=== PATIENT | female | born 1955 | race Caucasian/White ===

== ENCOUNTER 2017-09-14 05:31 | Outpatient (CLI) | payer BC ==
[~2017-09-14] VITALS: Ht 160 cm; Wt 97.1 kg
[2017-09-14] MEDS ORDERED: CETI10TA17 PO (10:31)
[2017-09-14] MEDS ORDERED: MELO15TA39 PO (10:31)
[2017-09-14] MEDS ORDERED: METF1000 PO (10:31)
[2017-09-14] MEDS ORDERED: SITA100T12 PO (10:31)
[2017-09-14] MEDS ORDERED: ACET-93 PO (10:31)
[2017-09-14] MEDS ORDERED: EZET10TA5 PO (10:31)
== END 2017-09-14 10:53 ==
LOC: PREOP 05:31
PROVIDERS: ATTEND Surgery
DX: Z01.818 Encounter for other preprocedural examination (principal); C50.919 Malignant neoplasm of unspecified site of unspecified female breast

== ENCOUNTER 2017-09-25 18:16 | Inpatient (IN) | payer BC ==
[~2017-09-25] VITALS: Ht 162.6 cm; Wt 88.5 kg
[~2017-09-25 18:16] MED LIST: ACET-93 PO; CETI10TA17 PO; EZET10TA5 PO; MELO15TA39 PO; METF1000 PO; SITA100T12 PO
[2017-09-25] MEDS ORDERED: IBUPROFEN TABLET 200 MG TAB PO PRN (18:30)
[2017-09-25] MEDS: VANCOMYCIN INJECTION 1,000 MG in NS (IVPB) 250 ML IV SCH (18:30)
[2017-09-25] MEDS ORDERED: ACETAMINOPHEN 500 MG TAB (TYLENOL) PO PRN (18:30)
[2017-09-25] MEDS: CEFEPIME INJECTION 2,000 MG in NS (IVPB) 50 ML IV SCH (18:50)
[2017-09-25 20:45] VITALS: BP 144/77
--- OUTSIDE RECORDS SUMMARY | 2017-09-25 20:57 | XMS REPORT ---
Author Author Rey Linton [facility] Address [address] [place] [id number] Care Team Providers Care Sectionizer Name Role Phone Rey Linton PCP Sherley Marlon PreferredProvider Allergies and Adverse Reactions Name Reaction Notes Medrol (Benitez) rash Plan of Treatment Not available. Medications Active Name Start Date Estimated Completion Date SIG Comments meloxicam 15 mg oral tablet 11/18/2016 11/13/2017 take 1 tablet (15 mg) by oral route once daily for 90 days Zetia 10 mg oral tablet 02/24/2017 02/19/2018 take 1 tablet (10 mg) by oral route once daily for 90 days Januvia 100 mg oral tablet 04/22/2017 06/16/2018 take 1 tablet (100 mg) by oral route once daily for 84 days Vitamin B-12 2 ,500 mcg oral one tablet by oral route once daily Arthritis Relief 650 mg oral take 2 tablets by oral route twice daily ondansetron HCl 8 mg oral tablet take 1 tablet (8 mg) by oral route every 8 hours hydrocodone-acetaminophen 5-325 mg oral tablet take 1 tablet by oral route every 4 hours as needed for pain pantoprazole 20 mg oral tablet,delayed release (DR/EC) take 1 tablet ( 20 mg) by oral route once daily metformin 1,000 mg oral tablet extended release 24hr 09/23/2017 09/18/2018 take 1/2 tablet by oral route twice daily dexamethasone 4 mg oral tablet take 2 tablets by mouth twice daily the day before, day of, and the day after chemo glimepiride 4 mg oral tablet 09/23/2017 take 1 tablet (4 mg) by oral route once daily the days of steroid treatment or fasting glucose >200. Problem List Description Status Onset Allergies Active Hypertension Active Personal history of breast cancer Active 06/2017 Diabetes mellitus out of control Active Hyperlipidemia Active Vital Signs Date Time BP-Sys(mm[Hg] BP-Isabela(mm[Hg]) HR(bpm) RR(rpm) Temp WT HT HC BMI BSA BMI Percentile O2 Sat(%) 09/25/2017 2:01:00 PM 144 mmHg 84 mmHg 109 bpm 20 rpm 101 F 207 lbs 63 in 36.67 kg/m2 2.04 m2 92 % 09/23/2017 10:12:00 AM 138 mmHg 76 mmHg 86 bpm 20 rpm 98.6 F 207 lbs 63 in 36.668 kg/m 2.0429 m 97 % 07/19/2017 8:52:00 AM 136 mmHg 70 mmHg 77 bpm 20 rpm 98.7 F 214 lbs 63 in 37.91 kg/m2 2.08 m2 97 % 05/27/2017 9:11:00 AM 140 mmHg 78 mmHg 77 bpm 16 rpm 97 F 213 lbs 63 in 37.7309 kg/m 2.0723 m 96 % 04/22/2017 8:23:00 AM 130 mmHg 72 mmHg 77 bpm 20 rpm 98.2 F 207 lbs 63 in 36.67 kg/m2 2.04 m2 96 % 02/24/2017 8:05:00 AM 142 mmHg 70 mmHg 76 bpm 18 rpm 97.6 F 209 lbs 63 in 37.0223 kg/m 2.0528 m 93 % 11/18/2016 8:10:00 AM 134 mmHg 78 mmHg 78 bpm 16 rpm 98.2 F 211 lbs 63 in 37.38 kg/m2 2.06 m2 98 % 08/18/2016 8:05:00 AM 144 mmHg 86 mmHg 79 bpm 16 rpm 98 F 211 lbs 63 in 37.3766 kg/m 2.0626 m 97 % 07/12/2016 1:34:00 PM 146 mmHg 66 mmHg 67 bpm 18 rpm 97.6 F 210.5 lbs 63 in 37.29 kg/m2 2.06 m2 95 % Social History Name Description Comments Alcohol Never Tobacco Never smoker History of Procedures Date Ordered Description Order Status 07/12/2016 12:00 AM COMPREHEN METABOLIC PANEL Reviewed 07/12/2016 12:00 AM LIPID PANEL Reviewed 07/12/2016 12:00 AM COMPLETE CBC W/AUTO DIFF WBC Reviewed 07/26/2016 12:00 AM ASSAY GLUCOSE BLOOD QUANT Reviewed 08/03/2016 12:00 AM GLYCOSYLATED HEMOGLOBIN TEST Reviewed 08/03/2016 12:00 AM ASSAY GLUCOSE BLOOD QUANT Reviewed 02/17/2017 12:00 AM COMPREHEN METABOLIC PANEL Reviewed 02/17/2017 12:00 AM GLYCOSYLATED HEMOGLOBIN TEST Reviewed 02/17/2017 12:00 AM LIPID PANEL Reviewed 04/14/2017 12:00 AM GLYCOSYLATED HEMOGLOBIN TEST Reviewed 05/09/2017 12:00 AM MAMMOGRAPHY SCREENING, DIGITAL Reviewed 06/06/2017 12:00 AM MAMMOGRAPHY, UNILATERAL, DX DIGITAL Reviewed 07/19/2017 12:00 AM COMPREHEN METABOLIC PANEL Reviewed 07/19/2017 12:00 AM GLYCOSYLATED HEMOGLOBIN TEST Reviewed 07/19/2017 12:00 AM LIPID PANEL Reviewed 07/19/2017 12:00 AM MICROALBUMIN QUANTITATIVE Reviewed 07/19/2017 12:00 AM VITAMIN B-12 Reviewed Results Summary Date and Description Results 07/13/2016 7:50 AM WBC 8.6 RBC 4.87 HGB 13.30 g/dLHCT 42.60 %MCV 88.0 fLMCH 27.30 pgMCHC 31.20 g/dLRDW SD 40 RDW CV 12.40 %MPV 9.30 fLPLT 278 NRBC# 0.00 NRBC% 0.0 %NEUT 65.80 %%LYMP 25.50 %%MONO 4.60 %%EOS 3.60 %%BASO 0.30 %#NEUT 5.67 #LYMP 2.20 #MONO 0.40 #EOS 0.31 #BASO 0.03 MANUAL DIFF NOT IND TRIGLYCERIDES 131.0 mg/dLCHOLESTEROL 234.0 mg/dLHDL 36.0 mg/dLTOT CHOL/HDL 6.5 LDL (CALC) 172.0 mg/dLGLUCOSE 154.0 mg/dLSODIUM 137.0 mmol/LPOTASSIUM 4.20 mmol/ LCHLORIDE 100.0 mmol/LCO2 28.0 mmol/LBUN 12.0 mg/dLCREATININE 0.90 mg/dLSGOT/ AST 45.0 IU/LSGPT/ALT 39.0 IU/LALK PHOS 128.0 IU/LTOTAL PROTEIN 8.30 g/ dLALBUMIN 4.10 g/dLTOTAL BILI 1.0 mg/dLCALCIUM 9.80 mg/dLAGE 60 GFR NonAA 64 GFR AA 78 eGFR >60 mL/min/1.73meGFR AA* >60 07/29/2016 9:00 AM GLUCOSE 138.0 mg/dL 08/05/2016 8:06 AM HGB A1C 8.10 %Est Avg Glucose 185.8 mg/dL 11/02/2016 8:48 AM GLUCOSE 133.0 mg/dL 02/14/2017 9:46 AM HGB A1C 7.50 %Est Avg Glucose 168.6 mg/dLGLUCOSE 111.0 mg/ dLSODIUM 138.0 mmol/LPOTASSIUM 4.80 mmol/LCHLORIDE 103.0 mmol/LCO2 27.0 mmol/ LBUN 11.0 mg/dLCREATININE 0.70 mg/dLSGOT/AST 47.0 IU/LSGPT/ALT 45.0 IU/LALK PHOS 116.0 IU/LTOTAL PROTEIN 7.80 g/dLALBUMIN 4.10 g/dLTOTAL BILI 0.90 mg/ dLCALCIUM 9.70 mg/dLAGE 61 GFR NonAA 86 GFR AA 104 eGFR >60 mL/min/1.73meGFR AA* >60 TRIGLYCERIDES 121.0 mg/dLCHOLESTEROL 246.0 mg/dLHDL 36.0 mg/dLTOT CHOL/ HDL 6.8 LDL (CALC) 186.0 mg/dL 04/15/2017 9:05 AM HGB A1C 7.70 %Est Avg Glucose 174.3 mg/dL 07/20/2017 9:05 AM HGB A1C 7.10 %Est Avg Glucose 157.1 mg/dLMICROALBUMIN UR 35.0 ug/mLVITAMIN B12 202.0 pg/mLGLUCOSE 106.0 mg/dLSODIUM 139.0 mmol/ LPOTASSIUM 4.20 mmol/LCHLORIDE 105.0 mmol/LCO2 25.0 mmol/LBUN 14.0 mg/ dLCREATININE 0.80 mg/dLSGOT/AST 35.0 IU/LSGPT/ALT 37.0 IU/LALK PHOS 109.0 IU/ LTOTAL PROTEIN 8.10 g/dLALBUMIN 4.10 g/dLTOTAL BILI 0.80 mg/dLCALCIUM 9.60 mg/ dLAGE 61 GFR NonAA 73 GFR AA 88 eGFR >60 mL/min/1.73meGFR AA* >60 TRIGLYCERIDES 136.0 mg/dLCHOLESTEROL 220.0 mg/dLHDL 44.0 mg/dLTOT CHOL/HDL 5.0 LDL (CALC) 149.0 mg/dL History Of Immunizations Name Date Admin Mfg Name Mfg Code Trade Name Lot# Route Inj Vis Given Vis Pub CVX Influenza 05/04/2017 Not Entered NE Fluzone Quadrivalent Not Entered Not Entered 08/08/2018 08/08/2018 158 History of Past Illness Name Date of Onset Comments Hypertension Allergies Personal history of breast cancer 06/2017 left breast Diabetes mellitus out of control Hyperlipidemia Essential hypertension Jul 12 2016 1:36PM Osteoarthritis Jul 12 2016 1:36PM Hyperglycemia Jul 26 2016 2:09PM Hyperglycemia Aug 03 2016 9:35AM Hyperglycemia Aug 03 2016 9:37AM Diabetes mellitus out of control Aug 18 2016 8:06AM Diabetes mellitus out of control Nov 18 2016 8:12AM Hypertension Nov 18 2016 8:12AM Pure hypercholesterolemia Nov 18 2016 8:12AM Essential Hypertension Feb 24 2017 8:07AM Nausea Feb 24 2017 8:07AM Diabetes Mellitus, Type II Feb 24 2017 8:07AM Elevated cholesterol Feb 24 2017 8:07AM Diabetes mellitus Apr 14 2017 4:11PM Diabetes mellitus type II, uncontrolled Apr 22 2017 8:25AM Encounter for screening mammogram for breast cancer May 09 2017 1:57PM Essential Hypertension May 27 2017 9:13AM Diabetes Mellitus, Type II May 27 2017 9:13AM Elevated cholesterol May 27 2017 9:13AM Abnormal mammogram of left breast Jun 06 2017 8:56AM Essential Hypertension Jul 19 2017 8:54AM Diabetes Mellitus, Type II Jul 19 2017 8:54AM Elevated cholesterol Jul 19 2017 8:54AM Nausea & vomiting Sep 25 2017 2:04PM Fever Sep 25 2017 2:04PM Chemotherapy adverse reaction, initial encounter Sep 25 2017 2:04PM Breast cancer Sep 25 2017 2:04PM Hypertension Sep 23 2017 10:15AM Personal history of breast cancer Sep 23 2017 10:15AM Diabetes mellitus out of control Sep 23 2017 10:15AM Payers Insurance Name Company Name Plan Name Plan Number Policy Number Policy Group Number Start Date [employer] [facility] [id number] N/A [employer] [facility] [id number] N/A [employer] [facility] [id number] N/A History of Encounters Visit Date Visit Type Provider 09/25/2017 Office visit Rey Linton DIANETIC COUNSELOR 09/23/2017 Office visit Marlon Lepe DO 07/19/2017 Office visit Marlon Lepe DO 05/27/2017 Office visit Marlon Lepe DO 04/22/2017 Office visit Marlon Lepe DO 02/24/2017 Office visit Marlon Lepe DO 11/18/2016 Office visit Marlon Lepe DO 08/18/2016 Office visit Marlon Lepe DO 07/12/2016 Office visit Marlon Lepe DO
--- OUTSIDE RECORDS SUMMARY | 2017-09-25 20:57 | XMS REPORT ---
Author Author Marlon Lepe [facility] Address [address] [place], [place] [id number] Care Team Providers Care Resident Advisor Name Role Phone Marlon Lepe PCP Marlon Lepe PreferredProvider Allergies and Adverse Reactions Name Reaction [...] oral route once daily for 84 days metformin 1,000 mg oral tablet extended release 24hr 04/22/2017 04/17/2018 take 1 tablet (1,000 mg) by oral route once daily with the evening meal for 90 days Problem List Description Status Onset Allergies Active Hypertension Active Personal history of breast cancer Active 06/2017 Diabetes mellitus out of control Active Hyperlipidemia Active Vital Signs Date Time BP-Sys(mm[Hg] BP-Isabela(mm[Hg]) HR(bpm) RR(rpm) Temp WT HT HC BMI BSA BMI Percentile O2 Sat(%) 07/19/2017 8:52:00 AM 136 mmHg 70 mmHg [...] NE Fluzone Quadrivalent Not Entered Not Entered 08/08/2017 08/08/2017 158 History of Past Illness Name Date [...] 8:54AM Elevated cholesterol Jul 19 2017 8:54AM Payers Insurance Name Company Name Plan Name Plan Number Policy Number Policy Group Number Start Date [employer] [place] [id number] N/A [employer] [place] [id number] N/A History of Encounters Visit Date Visit Type Provider 07/19/2017 Office visit Marlon Lepe DO 05/27/2017 Office visit Marlon Lepe DO 04/22/2017 Office visit Marlon Lepe DO 02/24/2017 Office visit Marlon Lepe DO 11/18/2016 Office visit Marlon Lepe DO 08/18/2016 Office visit Marlon Lepe DO 07/12/2016 Office visit Marlon Lepe DO
--- OUTSIDE RECORDS SUMMARY | 2017-09-25 20:59 | XMS REPORT ---
Author Author Rey Linton [facility] Address [address] [place] [id number] Care Team Providers Care Client Services Coordinator Name Role Phone Rey Linton PCP Sherley [...] 2:04PM Breast cancer Sep 25 2017 2:04PM Payers Insurance Name Company Name Plan Name Plan Number Policy Number Policy Group Number Start Date [employer] [place] [id number] N/A [employer] [place] [id number] N/A [employer] [place] [id number] N/A History of Encounters Visit Date Visit Type Provider 09/25/2017 Office visit Rey Linton BROACH TROUBLE SHOOTER 09/23/2017 Office visit Marlon Lepe DO 07/19/2017 Office visit Marlon Leep DO 05/27/2017 Office visit Marlon Lepe DO 04/22/2017 Office visit Marlon Lepe DO 02/24/2017 Office visit Marlon Lepe DO 11/18/2016 Office visit Marlon Lepe DO 08/18/2016 Office visit Marlon Lepe DO 07/12/2016 Office visit Marlon Lepe DO
--- OUTSIDE RECORDS SUMMARY | 2017-09-25 21:02 | XMS REPORT | Continuity of Care Document ---
Author Author [facility] Organization [facility] Address Unknown Phone Unavailable Allergies There is no data. Medications There is no data. Problems There is no data. Procedures There is no data. Results There is no data. Encounters ACCT No. Visit Date/Time Discharge Status Pt. Type Provider Facility Loc./Unit Complaint [id number] 07/19/2017 09:40:48 07/19/2017 23:59:59 Marlon Beyer [id number] 05/27/2017 10:07:16 05/27/2017 23:59:59 [facility] Marlon Lepe [id number] 04/22/2017 09:07:06 04/22/2017 23:59:59 Marlon Beyer [id number] 02/24/2017 09:00:43 02/24/2017 23:59:59 [facility] Marlon Lepe [id number] 11/18/2016 09:02:06 11/18/2016 23:59:59 Marlon Beyer [id number] 08/18/2016 08:57:02 08/18/2016 23:59:59 Marlon Beyer [id number] 07/12/2016 14:17:02 07/12/2016 23:59:59 Marlon Beyer
[2017-09-25 21:12] VITALS: BP 144/77
[2017-09-25] MEDS ORDERED: RT-ALBUTEROL SULF 2.5 MG/3 ML PRE-MIX VIAL INH PRN (21:45)
[2017-09-25] MEDS: ONDANSETRON 4 MG/2 ML (SDV) Z0FRAN IVP PRN (23:02)
[2017-09-25] MEDS: ENOXAPARIN 40 MG/0.4 ML (LOVENOX) SYR SC SCH (23:04)
[2017-09-25] MEDS: SCOPOLAMINE 1.5 MG (TRANSDERM-SCOP) PATCH TOP SCH (23:04)
[2017-09-26] VITALS: BP 150/77
[2017-09-26] MEDS: METOCLOPRAMIDE INJ 10 MG/2 ML (REGLAN) IVP SCH ×3 (00:08→14:26)
[2017-09-26] MEDS: NS IV 1000 ML 1,000 ML IV SCH ×5 (02:23→22:18)
[2017-09-26 04:00] VITALS: BP 145/73
[2017-09-26 04:06] LABS: BASOPHILS % (AUTO) 0 % (0-10); EOSINOPHILS % (AUTO) 1 % (0-10); HEMATOCRIT 36 % (35-52); HEMOGLOBIN 11.9 G/DL (11.5-16.0); LYMPHOCYTES # (AUTO) 1.4 X 10^3 (1.0-4.0); LYMPHOCYTES % (AUTO) 24 % (12-44); MEAN CORPUSCULAR HEMOGLOBIN 28 PG (25-34); MEAN CORPUSCULAR HGB CONC 34 G/DL (32-36); MEAN CORPUSCULAR VOLUME 83 FL (80-99); MEAN PLATELET VOLUME 10.7 FL (7.4-10.4); MONOCYTES # (AUTO) 1.1 X 10^3 (0.0-1.0); MONOCYTES % (AUTO) 19 % (0-12); NEUTROPHILS # (AUTO) 3.2 X 10^3 (1.8-7.8); NEUTROPHILS % (AUTO) 56 % (42-75); PLATELET COUNT 170 10^3/uL (130-400); RED BLOOD COUNT 4.27 10^6/uL (4.35-5.85); RED CELL DISTRIBUTION WIDTH 12.4 % (10.0-14.5); WHITE BLOOD COUNT 5.6 10^3/uL (4.3-11.0)
[2017-09-26 04:25] LABS: ALANINE AMINOTRANSFERASE 30 U/L (0-55); ALBUMIN 3.4 GM/DL (3.2-4.5); ALKALINE PHOSPHATASE 92 U/L (40-136); BILIRUBIN,TOTAL 1.2 MG/DL (0.1-1.0); BUN/CREATININE RATIO 14; CALCIUM 8.5 MG/DL (8.5-10.1); CARBON DIOXIDE 23 MMOL/L (21-32); CHLORIDE 102 MMOL/L (98-107); CREATININE SERUM 0.71 MG/DL (0.60-1.30); GFR ESTIMATED > 60; GLUCOSE 152 MG/DL (70-105); POTASSIUM 3.9 MMOL/L (3.6-5.0); SODIUM 135 MMOL/L (135-145); TOTAL PROTEIN 6.2 GM/DL (6.4-8.2)
[2017-09-26] MEDS: VANCOMYCIN INJECTION 1,000 MG in NS (IVPB) 250 ML IV SCH (06:48)
[2017-09-26 08:00] VITALS: BP 138/66
[2017-09-26] MEDS ORDERED: VANCOMYCIN INJECTION 750 MG in NS (IVPB) 250 ML IV NR (08:15)
[2017-09-26] MEDS ORDERED: ACHD5005 PO (08:42)
[2017-09-26] MEDS ORDERED: PANT20TA2 PO (08:42)
[2017-09-26] MEDS ORDERED: PROC10TA PO (08:42)
[2017-09-26] MEDS ORDERED: ONDA8TAB6 PO (08:42)
[2017-09-26] MEDS ORDERED: SITA100T12 PO (08:42)
[2017-09-26] MEDS ORDERED: DEXA4TAB PO (08:42)
[2017-09-26] MEDS ORDERED: ACET-2429 PO (08:42)
[2017-09-26] MEDS ORDERED: CYAN25003 SL (08:42)
[2017-09-26] MEDS: CEFEPIME INJECTION 2,000 MG in NS (IVPB) 50 ML IV SCH (09:20)
[2017-09-26] MEDS: ONDANSETRON 4 MG/2 ML (SDV) Z0FRAN IVP PRN (09:20)
[2017-09-26 12:00] VITALS: BP 150/74
[2017-09-26] MEDS: fentaNYL INJECTION 100 MCG/2 ML AMP IVP PRN ×2 (12:02→17:50)
[2017-09-26] MEDS ORDERED: ONDANSETRON 4 MG/2 ML (SDV) Z0FRAN IVP PRN (13:15)
[2017-09-26] MEDS ORDERED: PROMETHAZINE INJ 25 MG/ML (PHENERGAN) AMP IVP PRN (13:15)
--- NOTE | 2017-09-26 13:51 | Oncology Consultation ---
Visit Information Visit Information Date of Admission Sep 25, 2017 at 20:40 Attending Physician Danika Dimas DO Admitting Physician Marlon Lepe DO Chief Complaint nausea, vomiting and diarrhea, fatigue after chemo Interval History Ms. Valladares is a 62 year old white female who was directly admitted from [facility] to our ICU by Dr Dimas for neutropenic fever. Pt has breast cancer under the care of Dr Zuluaga. Patient underwent lumpectomy and SLNB on 07/28/17. Pathology showed 9mm focus of IDC grade in background of DCIS, ER 85%, OH 0%, [id number]%, Her2 neg by FISH, margins negative, 1/3 macrometastatic lymph nodes. Final stage was [id number] stage IIA, so adjuvant TC x4 was recommended prior to radiation. She received her first cycle of TC on 09/19/17 (docetaxel 75mg/m2 and cyclophosphamide 600mg/m2). She started to have nausea vomiting, abdominal pain and diarrhea about 3 days ago and then had low grade temp 99-100 yesterday so she went to [facility] and was then transferred here. Her BP has been normal or slightly high. Her WBC was 5.6 and ANC 3200, normal Plt and Hb. H/o DM II I consulted the patient on: 09/26/17 13:46 Time Seen by Provider: 12:45 Constitutional: fever, weakness Respiratory: no symptoms reported Cardiovascular: no symptoms reported Gastrointestinal: abdominal pain, diarrhea, nausea, vomiting Musculoskeletal: muscle stiffness Psychiatric/Neurological: Anxiety Health Status Allergies Coded Allergies: latex (Verified Allergy, Mild, HIVES/RASH, 09/14/17) methylprednisolone (Verified Allergy, Mild, RASH, 09/14/17) ultrasound coupling medium (Verified Allergy, Mild, RASH, 09/14/17) Penicillins (Verified Allergy, Unknown, 09/25/17) Home Medications Acetaminophen (Acetaminophen 8 Hour) 650 Mg Tablet.er, 1,300 MG PO Q8H PRN for PAIN-MILD, (Reported) Cetirizine HCl (Cetirizine HCl) 10 Mg Tablet, 10 MG PO DAILY PRN for ALLERGIES, (Reported) Cyanocobalamin (Vitamin B-12) (Vitamin B-12) 2,500 Mcg Tab.subl, 2,500 MCG SL DAILY, (Reported) Dexamethasone (Dexamethasone) 4 Mg Tablet, 8 MG PO UD, (Reported) TAKES 2 (4MG) TABLETS TWICE DAILY THE DAY BEFORE, DAY OF, AND DAY AFTER CHEMO Ezetimibe (Zetia) 10 Mg Tablet, 10 MG PO DAILY, (Reported) LAST FILLED #30 07-11-17 Hydrocodone Bit/Acetaminophen (Hydrocodone/Acetaminophen 5/325mg Tablet) 1 Tab Tab, 1 TAB PO Q4H PRN for PAIN-MODERATE, (Reported) Metformin HCl (Metformin HCl) 1,000 Mg Tablet, 500 MG PO BID, (Reported) LAST FILLED 07-11-17 #60 TAKES 1/2 (1000MG) TABLET Ondansetron HCl (Zofran) 8 Mg Tablet, 8 MG PO Q8H PRN for NAUSEA/VOMITING-1ST LINE, (Reported) Pantoprazole Sodium (Protonix) 20 Mg Tablet.dr, 20 MG PO DAILY, (Reported) Prochlorperazine Maleate (Prochlorperazine Maleate) 10 Mg Tablet, 10 MG PO Q6H PRN for NAUSEA/VOMITING-4TH LINE, (Reported) Sitagliptin Phosphate (Januvia) 100 Mg Tablet, 100 MG PO DAILY, (Reported) [id number] Hx Patient Social History Alcohol Use: Denies Use Recreational Drug Use: No Smoking Status: Never a Smoker Recent Foreign Travel: No Contact w/other who traveled: No Recent Infectious Disease Expo: No Recent Hopitalizations: Yes (LUMPECTOMY) Physical Abuse Screen: No Sexual Abuse: No Immunizations Up To Date Tetanus Booster (TDap): Unknown Date of Influenza Vaccine: May 23, 2017 Physical Exam Vital Signs Vital Signs - First Documented 09/25/17 20:45 Temp 98.0 Pulse 87 Resp 18 B/P (MAP) 144/77 (99) Pulse Ox 94 O2 Delivery Room Air Capillary Refill : General Appearance: No Apparent Distress, Obese HEENT: PERRL/EOMI Neck: Non Tender, Supple Respiratory: Chest Non Tender, Lungs Clear, No Accessory Muscle Use, No Respiratory Distress Cardiovascular: Regular Rate, Rhythm, No Edema Gastrointestinal: Distended, Tenderness Extremity: Non Tender, No Calf Tenderness, No Pedal Edema Neurologic/Psychiatric: Alert, Oriented x3 Data Review Labs Laboratory Tests 09/26/17 03:55 Laboratory Tests 09/26/17 03:55: Red Blood Count 4.27L, Mean Platelet Volume 10.7H, Monocytes (%) (Auto) 19H, Monocytes # (Auto) 1.1H, Glucose Level 152H, Magnesium Level 1.7L, Total Bilirubin 1.2H, Total Protein 6.2L Impression & Plan Impression & Plan Imp: 1. Breast cancer left breast [id number] stage IIA (ER 85%, OH 0%, Her2 neg) s/p lumpectomy and SLNB. s/p 1st cycle of adjuvant chemotherapy 09/19/17 (docetaxel 75mg/m2 and cyclophosphamide 600mg/m2 every 3 weeks). 2. Nausea, vomiting and diarrhea and abdominal pain, most likely from the side effect of chemotherapy. 3. Low grade fever 99-100, but NOT neutropenic. 4. DM II 5. Obese. 6. Hemodynamic stable. Rec: 1. IVF support 2. Antiemetic Zofran 8mg+Decadron 4mg IV bid scheduled. Phenergan PRN and additional Zofran PRN. 3. Bowel rest. Eat lightly. Avoid sugar and diary products for next few days until diarrhea resolves. 4. Pt can go to regular floor bed. 5. Dr Zuluaga will be back on Tue. 6. I anticipate 2-[address] days [address] stay. Dr Dimas to make the final call of discharge. 7. I am not sure she will benefit the IV antibiotics. 8. Check stool C Diff. HAROON MCCOY MD Sep 26, 2017 13:51
[2017-09-26 16:00] VITALS: BP 149/75
--- NOTE | 2017-09-26 16:33 | History & Physical-Hospitalist ---
HPI History of Present Illness: HPI/Chief Complaint The patient is a 62-year-old white female. She is just started on chemotherapy for breast cancer and took her first dose on 09/19. She was seen in the emergency room in [place] yesterday and was running a fever. She was transferred here as it was feared she was septic with immunosuppression. She was said to have had a temperature of 102 at [place]. She has had nothing since arrival above 100.4. Her white count was 5600 with 3200 granulocytes. She denies cough or localizing symptoms. Source: patient Exam Limitations: no limitations Date Seen 09/26/17 Time Seen by Provider: 16:28 Attending Physician Danika Dimas Andrea K DO Referring Physician Date of Admission Sep 25, 2017 at 20:40 Home Medications & Allergies Home Medications Reviewed patient Home Medication Reconciliation Form Allergies Allergies Coded Allergies latex (Verified Allergy, Mild, HIVES/RASH, 09/14/17) methylprednisolone (Verified Allergy, Mild, RASH, 09/14/17) ultrasound coupling medium (Verified Allergy, Mild, RASH, 09/14/17) Penicillins (Verified Allergy, Unknown, 09/25/17) Past [id number] Hx Patient Social History Alcohol Use: Denies Use Recreational Drug Use: No Smoking Status: Never a Smoker Physical Abuse Screen: No Sexual Abuse: No Recent Foreign Travel: No Contact w/other who traveled: No Recent Hopitalizations: Yes (LUMPECTOMY) Recent Infectious Disease Expo: No Immunizations Up To Date Tetanus Booster (TDap): Unknown Pediatric: No Date of Influenza Vaccine: May 23, 2017 Seasonal Allergies Seasonal Allergies: Yes Surgeries Yes ( lt lumpectomy, lt lymph node disedtion) Appendectomy, Section Respiratory No Currently Using CPAP: No Currently Using BIPAP: No Cardiovascular Yes High Cholesterol Neurological No Reproductive System Hx Reproductive Disorders: No Sexually Transmitted Disease: No HIV/AIDS: No Genitourinary No Gastrointestinal Yes Gastroesophageal Reflux, Diverticulosis Musculoskeletal Yes Arthritis, Chronic Back Pain Endocrine History of Endocrine Disorders: Yes HEENT History of HEENT Disorders: No Loss of Vision: Bilateral Hearing Impairment: Denies Cancer Yes Breast Did You Recieve Any Treatments: Yes Type of Treatment: Surgical Intervention Psychosocial History of Psychiatric Problem: No Integumentary History of Skin or Integumenta: No Blood Transfusions History of Blood Disorders: Yes (HX ANEMIA) Adverse Reaction to a Blood Tr: No (HAS HAD BLOOD WITH NO REACTION) Review of Systems Constitutional: see HPI, fever, malaise, weakness EENTM: no symptoms reported Respiratory: no symptoms reported Cardiovascular: no symptoms reported Gastrointestinal: diarrhea Genitourinary: no symptoms reported Musculoskeletal: muscle pain, muscle weakness Skin: no symptoms reported Psychiatric/Neurological: No Symptoms Reported Physical Exam Physical Exam Vital Signs Vital Signs - First Documented 09/25/17 20:45 Temp 98.0 Pulse 87 Resp 18 B/P (MAP) 144/77 (99) Pulse Ox 94 O2 Delivery Room Air Capillary Refill : General Appearance: Mild Distress Eyes: Bilateral Eye Normal Inspection HEENT: Normal ENT Inspection Neck: Full Range of Motion, Normal Inspection, Non Tender, Supple Respiratory: Decreased Breath Sounds Cardiovascular: Regular Rate, Rhythm, No Edema, No Gallop, No JVD, No Murmur, Normal Peripheral Pulses Gastrointestinal: Normal Bowel Sounds, No Organomegaly, No Pulsatile Mass, Non Tender, Soft Back: Normal Inspection Extremity: Normal Capillary Refill, Normal Inspection, Normal Range of Motion, Non Tender, No Calf Tenderness, No Pedal Edema Neurologic/Psychiatric: Alert, Oriented x3, No Motor/Sensory Deficits, Normal Mood/Affect Skin: Normal Color, Warm/Dry Results Results/Procedures Lab Laboratory Tests 09/26/17 03:55 Assessment/Plan Admission Diagnosis Breast cancer. 2.fever postchemotherapy 3.. Diarrhea Assessment and Plan IV fluids. Cultures as appropriate. Clinical Quality Measures DVT/VTE Risk/Contraindication: Risk Factor Score Per Nursin RFS Level Per Nursing on Admit: 4+=Very High CORRY MONROY MD Sep 26, 2017 16:33
[2017-09-26] MEDS: ENOXAPARIN 40 MG/0.4 ML (LOVENOX) SYR SC SCH (17:57)
[2017-09-26] MEDS ORDERED: VANCOMYCIN 1250 MG/NS 250 ML IVPB IV SCH ×2 (18:30)
[2017-09-26 19:38] VITALS: BP 120/56
[2017-09-26] MEDS ORDERED: ONDANSETRON 4 MG/2 ML (SDV) Z0FRAN IVP SCH (21:00)
[2017-09-26] MEDS: ONDANSETRON 4 MG/2 ML (SDV) Z0FRAN IVP SCH (22:17)
[2017-09-26] MEDS: FAMOTIDINE 20MG/2ML IV (PEPCID) IVP SCH (22:17)
[2017-09-26] MEDS: DEXAMETHASONE 4 MG/ML SDV (DECADRON) IV SCH (22:18)
[2017-09-27] VITALS: BP 124/58
[2017-09-27 04:00] VITALS: BP 128/57
[2017-09-27] MEDS: FAMOTIDINE 20MG/2ML IV (PEPCID) IVP SCH ×2 (07:53→20:25)
[2017-09-27] MEDS: DEXAMETHASONE 4 MG/ML SDV (DECADRON) IV SCH ×2 (07:53→20:26)
[2017-09-27] MEDS: ONDANSETRON 4 MG/2 ML (SDV) Z0FRAN IVP SCH ×2 (07:53→20:23)
[2017-09-27 08:00] VITALS: BP 127/64
[2017-09-27] MEDS: metroNIDAZOLE 500 MG (FLAGYL) TAB PO SCH ×3 (10:13→20:24)
--- NOTE | 2017-09-27 11:44 | Progress Note-Hospitalist ---
Subjective HPI/CC On Admission Date Seen by Provider: Sep 27, 2017 Time Seen by Provider: 09:45 The patient is a 62-year-old white female. She is just started on chemotherapy for breast cancer and took her first dose on 09/19. She was seen in the emergency room in [place] yesterday and was running a fever. She was transferred here as it was feared she was septic with immunosuppression. She was said to have had a temperature of 102 at [place]. She has had nothing since arrival above 100.4. Her white count was 5600 with 3200 granulocytes. She denies cough or localizing symptoms. Subjective/Events-last exam Pt reports feeling better today. Would like to advance diet today. Objective Exam Vital Signs Vital Signs Date Time Temp Pulse Resp B/P (MAP) Pulse Ox O2 Delivery O2 Flow Rate FiO2 09/25/17 20:45 98.0 87 18 144/77 (99) 94 Room Air Capillary Refill : General Appearance: No Apparent Distress, WD/WN Respiratory: Lungs Clear, Normal Breath Sounds Cardiovascular: Regular Rate, Rhythm, No Murmur Gastrointestinal: Normal Bowel Sounds, Non Tender, Soft Neurologic/Psychiatric: Alert, Oriented x3 Assessment/Plan Assessment and Plan Assess & Plan/Chief Complaint C diff colitis Diagnosis/Problems Diagnosis/Problems (1) C. difficile colitis Assessment & Plan: C diff positive On precautions Will start on Flagyl Likely cause of fever No neutropenic (2) Breast cancer Status: Chronic Assessment & Plan: Follows with Dr Zan Maldonado/Onc consulted- appreciate recs Qualifiers: Qualified Codes: C50.912 - Malignant neoplasm of unspecified site of left female breast; Z17.0 - Estrogen receptor positive status [ER+] (3) Non-insulin dependent type 2 diabetes mellitus Assessment & Plan: Resume home meds (4) Prophylactic measure Assessment & Plan: Lovenox IVF until PO intake up JOSE LANDIN MD Sep 27, 2017 11:44
[2017-09-27 12:00] VITALS: BP 146/66
[2017-09-27] MEDS: NS IV 1000 ML 1,000 ML IV SCH ×2 (12:52→15:15)
--- NOTE | 2017-09-27 15:52 | Physician Progress Note ---
Progress Note Assessment/Plan Time Seen by Provider: 15:30 Events since last exam Stool C diff positive. Started her on oral Flagyl. Other IV antibiotics stopped. Nausea vomiting and diarrhea better today. Only eat very little today No fever. She looked better today Abdominal soft, mild tenderness No edema Assessment/Plan Imp: 1. Breast cancer left breast [id number] stage IIA (ER 85%, MT 0%, Her2 neg) s/p lumpectomy and SLNB. s/p 1st cycle of adjuvant chemotherapy 09/19/17 (docetaxel 75mg/m2 and cyclophosphamide 600mg/m2 every 3 weeks). 2. Nausea, vomiting and diarrhea and abdominal pain, most likely from the side effect of chemotherapy. 3. Low grade fever 99-100, but NOT neutropenic. 4. DM II 5. Obese. 6. Hemodynamic stable. 7. C Diff colitis. Rec: 1. IVF support 2. Antiemetic Zofran 8mg+Decadron 4mg IV bid scheduled for today. Can be stopped tomorrow. Just use the PRN Phenergan PRN and additional Zofran PRN. 3. Bowel rest. Eat lightly. Avoid sugar and dairy products for next few days until diarrhea resolves. 4. Dr Zuluaga will be back on Tue. Vitals Last set of Vitals Signs Vital Signs Date Time Temp Pulse Resp B/P (MAP) Pulse Ox O2 Delivery O2 Flow Rate FiO2 09/27/17 12:00 98.0 82 16 146/66 (92) 94 Room Air I&O I&O Intake and Output 09/27/17 00:00 Intake Total 2907.5 ml Output Total 2045 ml Balance 862.5 ml Intake Oral 650 ml IV Total 2257.5 ml Output Urine Total 2025 ml Emesis 20 ml # Bowel Movements 9 Labs Microbiology 09/26/17 C. difficile [facility] Antigen & Toxins - Final, Complete Clinical Quality Measures DVT/VTE Risk/Contraindication: Risk Factor Score Per Nursin RFS Level Per Nursing on Admit: 4+=Very High HAROON MCCOY MD Sep 27, 2017 15:52
[2017-09-27 16:00] VITALS: BP 127/65
[2017-09-27] MEDS: fentaNYL INJECTION 100 MCG/2 ML AMP IVP PRN (17:22)
[2017-09-27] MEDS: ENOXAPARIN 40 MG/0.4 ML (LOVENOX) SYR SC SCH (17:23)
[2017-09-27] MEDS ORDERED: TROUGH ORDER-PHARMACY XX NR (17:30)
[2017-09-27 20:00] VITALS: BP 126/60
[2017-09-28] VITALS (7 sets, daily range): BP systolic 120–147; BP diastolic 58–74
[2017-09-28] MEDS: NS IV 1000 ML 1,000 ML IV SCH (01:46)
[2017-09-28] MEDS: ONDANSETRON 4 MG/2 ML (SDV) Z0FRAN IVP SCH (07:03)
[2017-09-28] MEDS: FAMOTIDINE 20MG/2ML IV (PEPCID) IVP SCH (08:26)
[2017-09-28] MEDS: fentaNYL INJECTION 100 MCG/2 ML AMP IVP PRN ×2 (08:27→15:53)
[2017-09-28 09:17] LABS: BASOPHILS # (AUTO) 0.1 10^3/uL (0.0-0.1); BASOPHILS % (AUTO) 0 % (0-10); EOSINOPHILS % (AUTO) 0 % (0-10); HEMATOCRIT 33 % (35-52); HEMOGLOBIN 10.7 G/DL (11.5-16.0); LYMPHOCYTES # (AUTO) 1.3 X 10^3 (1.0-4.0); LYMPHOCYTES % (AUTO) 6 % (12-44); MEAN CORPUSCULAR HEMOGLOBIN 28 PG (25-34); MEAN CORPUSCULAR HGB CONC 33 G/DL (32-36); MEAN CORPUSCULAR VOLUME 85 FL (80-99); MEAN PLATELET VOLUME 10.4 FL (7.4-10.4); MONOCYTES # (AUTO) 0.7 X 10^3 (0.0-1.0); MONOCYTES % (AUTO) 3 % (0-12); NEUTROPHILS # (AUTO) 20.9 X 10^3 (1.8-7.8); NEUTROPHILS % (AUTO) 91 % (42-75); PLATELET COUNT 225 10^3/uL (130-400); RED BLOOD COUNT 3.82 10^6/uL (4.35-5.85); RED CELL DISTRIBUTION WIDTH 12.7 % (10.0-14.5)
[2017-09-28 09:33] LABS: BAND NEUTROPHILS 17 %; BASOPHILS % (MANUAL) 0 %; EOSINOPHILS % (MANUAL) 0 %; LYMPHOCYTES % (MANUAL) 10 %; MONOCYTES % (MANUAL) 1 %; MYELOCYTES % 1 %; NEUTROPHILS % (MANUAL) 71 %; RBC MORPH NORMAL
[2017-09-28 09:36] LABS: BUN/CREATININE RATIO 13; CALCIUM 8.3 MG/DL (8.5-10.1); CARBON DIOXIDE 22 MMOL/L (21-32); CHLORIDE 107 MMOL/L (98-107); CREATININE SERUM 0.68 MG/DL (0.60-1.30); GFR ESTIMATED > 60; GLUCOSE 254 MG/DL (70-105); MAGNESIUM 1.8 MG/DL (1.8-2.4); POTASSIUM 4.1 MMOL/L (3.6-5.0); SODIUM 138 MMOL/L (135-145)
--- NOTE | 2017-09-28 11:29 | Progress Note-Hospitalist ---
Subjective HPI/CC On Admission Date Seen by Provider: Sep 28, 2017 Time Seen by Provider: 11:20 The patient is a 62-year-old white female. She is just started on chemotherapy for breast cancer and took her first dose on 09/19. She was seen in the emergency room in [place] yesterday and was running a fever. She was transferred here as it was feared she was septic with immunosuppression. She was said to have had a temperature of 102 at [place]. She has had nothing since arrival above 100.4. Her white count was 5600 with 3200 granulocytes. She denies cough or localizing symptoms. Subjective/Events-last exam She reports feeling well but still having abd pain. Not taking in much oral intake yet. Would like to advance to a regular diet though. Objective Exam Vital Signs Vital Signs Date Time Temp Pulse Resp B/P (MAP) Pulse Ox O2 Delivery O2 Flow Rate FiO2 09/25/17 20:45 98.0 87 18 144/77 (99) 94 Room Air Capillary Refill : General Appearance: No Apparent Distress, WD/WN Respiratory: Lungs Clear, No Accessory Muscle Use Cardiovascular: Regular Rate, Rhythm, No Edema Gastrointestinal: Normal Bowel Sounds, Non Tender, Soft Neurologic/Psychiatric: Alert, Oriented x3 Results/Procedures Lab Laboratory Tests 09/28/17 09:10 Assessment/Plan Assessment and Plan Assess & Plan/Chief Complaint C diff colitis Diagnosis/Problems Diagnosis/Problems (1) C. difficile colitis Assessment & Plan: C diff positive On precautions Tolerating well, Day 09/17 Likely cause of fever No neutropenic (2) Breast cancer Status: Chronic Assessment & Plan: Follows with Dr Zan Maldonado/Onc consulted- appreciate recs Qualifiers: Qualified Codes: C50.912 - Malignant neoplasm of unspecified site of left female breast; Z17.0 - Estrogen receptor positive status [ER+] (3) Non-insulin dependent type 2 diabetes mellitus Assessment & Plan: Resume home meds (4) Prophylactic measure Assessment & Plan: Lovenox Saline lock Reg diet JOSE SOTO MD Sep 28, 2017 11:29
[2017-09-28] MEDS ORDERED: ONDANSETRON 4 MG (ZOFRAN) ORAL DISSOLVE TAB PO PRN (11:30)
[2017-09-28] MEDS: metroNIDAZOLE 500 MG (FLAGYL) TAB PO SCH ×3 (11:34→21:48)
[2017-09-28] MEDS: metFORMIN 500 MG (GLUCOPHAGE) TAB PO SCH (17:34)
[2017-09-28] MEDS: SCOPOLAMINE 1.5 MG (TRANSDERM-SCOP) PATCH TOP SCH (17:35)
[2017-09-28] MEDS: ENOXAPARIN 40 MG/0.4 ML (LOVENOX) SYR SC SCH (17:35)
[2017-09-28] MEDS: FAMOTIDINE 20 MG (PEPCID) TABLET PO SCH (21:48)
[2017-09-29] VITALS: BP 133/63
[2017-09-29 04:00] VITALS: BP 143/74
[2017-09-29] MEDS: metFORMIN 500 MG (GLUCOPHAGE) TAB PO SCH (06:17)
[2017-09-29] MEDS: fentaNYL INJECTION 100 MCG/2 ML AMP IVP PRN (06:17)
[2017-09-29] MEDS ORDERED: FAMO20TA5 PO (07:56)
[2017-09-29] MEDS ORDERED: METR500T21 PO (07:56)
[2017-09-29] MEDS ORDERED: ONDA8TAB6 PO (07:56)
[2017-09-29 08:00] VITALS: BP 120/58
--- NOTE | 2017-09-29 08:01 | Discharge Inst-Simple/Standard ---
Discharge Inst-Standard Discharge Medications New, Converted or Re-Newed RX: Call to Patients Pharmacy Patient Instructions/Follow Up Plan of Care/Instructions/FU: Please continue to take your medications as written. It is important to finish your antibiotic even if you are feeling better. Please schedule a follow up with your PCP in 1 week and follow up with Dr Zuluaga as scheduled. If your symptoms return or worsen please seek evaluation with your PCP or in the ER. Activity as Tolerated: Yes Discharge Diet: ADA JOSE Lr MD Sep 29, 2017 08:01
--- NOTE | 2017-09-29 08:05 | Discharge Summary-Hospitalist ---
Diagnosis/Chief Complaint Date of Admission Sep 25, 2017 at 20:40 Date of Discharge Discharge Date: Sep 29, 2017 Admission Diagnosis Breast cancer. 2.fever postchemotherapy 3.. Diarrhea Discharge Diagnosis C diff colitis (1) C. difficile colitis Assessment & Plan: C diff positive On precautions Tolerating well, Day 3 Will complete course as outpatient Tolerating diet Likely cause of fever Not neutropenic (2) Breast cancer Status: Chronic Assessment & Plan: Follows with Dr Zan Maldonado/Onc consulted- appreciate recs (3) Non-insulin dependent type 2 diabetes mellitus Assessment & Plan: Cont home meds (4) Prophylactic measure Assessment & Plan: Lovenox Saline lock Reg diet Discharge Summary Consultations Dr Cole/Dr Samson- Onc Discharge Physical Examination Allergies: Coded Allergies: latex (Verified Allergy, Mild, HIVES/RASH, 09/14/17) methylprednisolone (Verified Allergy, Mild, RASH, 09/14/17) ultrasound coupling medium (Verified Allergy, Mild, RASH, 09/14/17) Penicillins (Verified Allergy, Unknown, 09/25/17) Vitals & I&Os Vital Signs Date Time Temp Pulse Resp B/P (MAP) Pulse Ox O2 Delivery O2 Flow Rate FiO2 09/29/17 04:00 97.2 64 20 143/74 (97) 96 Room Air Hospital Course Pt was admitted as a transfer from an outside hospital for presumed neutropenic fever. On arrival she was found to not be neutropenic but had been having multiple loose stools daily since the day before admission. C diff testing was done and she was found to be positive. She was treated with Flagyl and was tolerating well. She wad tolerating a regular diet as well and no longer febrile. She was discharged home in stable condition. Labs (last 24 hrs) Laboratory Tests 09/28/17 09:10: White Blood Count 23.0H, Red Blood Count 3.82L, Hemoglobin 10.7L, Hematocrit 33L , Mean Corpuscular Volume 85, Mean Corpuscular Hemoglobin 28, Mean Corpuscular Hemoglobin Concent 33, Red Cell Distribution Width 12.7, Platelet Count 225, Mean Platelet Volume 10.4, Neutrophils (%) (Auto) 91H, Lymphocytes (%) (Auto) 6L , Monocytes (%) (Auto) 3, Eosinophils (%) (Auto) 0, Basophils (%) (Auto) 0, Neutrophils # (Auto) 20.9H, Lymphocytes # (Auto) 1.3, Monocytes # (Auto) 0.7, Eosinophils # (Auto) 0.0, Basophils # (Auto) 0.1, Neutrophils % (Manual) 71, Lymphocytes % (Manual) 10, Monocytes % (Manual) 1, Eosinophils % (Manual) 0, Basophils % (Manual) 0, Myelocytes % 1, Band Neutrophils 17, Blood Morphology Comment NORMAL, Sodium Level 138, Potassium Level 4.1, Chloride Level 107, Carbon Dioxide Level 22, Anion Gap 9, Blood Urea Nitrogen 9, Creatinine 0.68, Estimat Glomerular Filtration Rate > 60, BUN/Creatinine Ratio 13, Glucose Level 254H, Calcium Level 8.3L, Magnesium Level 1.8 Microbiology 09/26/17 C. difficile [facility] Antigen & Toxins - Final, Complete Discharge Home Medications: Active Scripts Active Metronidazole 500 Mg Tablet 500 Mg PO TID Famotidine 20 Mg Tablet 20 Mg PO BID Zofran (Ondansetron HCl) 8 Mg Tablet 8 Mg PO Q8H PRN Reported Dexamethasone 4 Mg Tablet 8 Mg PO UD TAKES 2 (4MG) TABLETS TWICE DAILY THE DAY BEFORE, DAY OF, AND DAY AFTER CHEMO Prochlorperazine Maleate 10 Mg Tablet 10 Mg PO Q6H PRN Protonix (Pantoprazole Sodium) 20 Mg Tablet.dr 20 Mg PO DAILY Hydrocodone/Acetaminophen 5/325mg Tablet (Acetaminophen/Hydrocodone Bitart) 1 Tab Tab 1 Tab PO Q4H PRN Vitamin B-12 (Cyanocobalamin (Vitamin B-12)) 2,500 Mcg Tab.subl 2,500 Mcg SL DAILY Januvia (Sitagliptin Phosphate) 100 Mg Tablet 100 Mg PO DAILY Acetaminophen 8 Hour (Acetaminophen) 650 Mg Tablet.er 1,300 Mg PO Q8H PRN Cetirizine HCl 10 Mg Tablet 10 Mg PO DAILY PRN Metformin HCl 1,000 Mg Tablet 500 Mg PO BID LAST FILLED 07-11-17 #60 TAKES 1/2 (1000MG) TABLET Zetia (Ezetimibe) 10 Mg Tablet 10 Mg PO DAILY LAST FILLED #30 07-11-17 Instructions to patient/family Please see electronic discharge instructions given to patient. Clinical Quality Measures DVT/VTE Risk/Contraindication: Risk Factor Score Per Nursin RFS Level Per Nursing on Admit: 4+=Very High Copy Copies To 1: JOCE SAMSON MD; [place] GEIG[place] DO Problem Qualifiers (1) Breast cancer: Breast location: unspecified site of breast Estrogen receptor status: positive Patient sex: female Laterality: left Qualified Codes: C50.912 - Malignant neoplasm of unspecified site of left female breast; Z17.0 - Estrogen receptor positive status [ER+] JOSE SOTO MD Sep 29, 2017 08:05
[2017-09-29] MEDS: metroNIDAZOLE 500 MG (FLAGYL) TAB PO SCH ×2 (08:40→12:05)
[2017-09-29] MEDS: FAMOTIDINE 20 MG (PEPCID) TABLET PO SCH (08:40)
[2017-09-29] MEDS ORDERED: PANTOPRAZOLE 20 MG TABLET (PROTONIX) PO SCH (09:00)
[2017-09-29] MEDS ORDERED: LINAGLIPTIN (TRADJENTA) 5 MG TABLET PO SCH (09:00)
[2017-09-29 12:00] VITALS: BP 132/63
== END 2017-09-29 13:00 | disposition home or self-care (01) | DRG 372 ==
LOC: ICU 20:40 → 4TH 09-26 17:26
PROVIDERS: ADMIT Internal Medicine; ATTEND Internal Medicine
DX: A04.72 Enterocolitis due to Clostridium difficile, not specified as recurrent (principal); C50.912 Malignant neoplasm of unspecified site of left female breast; C77.3 Secondary and unspecified malignant neoplasm of axilla and upper limb lymph nodes; R11.2 Nausea with vomiting, unspecified; R50.9 Fever, unspecified; E11.9 Type 2 diabetes mellitus without complications; E78.00 Pure hypercholesterolemia, unspecified; K21.9 Gastro-esophageal reflux disease without esophagitis; Z17.0 Estrogen receptor positive status [ER+]
CPT/HCPCS: 36415; 80048; 80053; 83605; 83735; 85007; 85025; 85027; 87324; 87449; 94760

== ENCOUNTER 2017-11-24 08:31 | Outpatient (RCR) | payer BC, OTHER ==
[2017-09-19 11:01] LABS: BASOPHILS % (AUTO) 0 % (0-10); EOSINOPHILS % (AUTO) 0 % (0-10); HEMATOCRIT 39 % (35-52); HEMOGLOBIN 13.1 G/DL (11.5-16.0); LYMPHOCYTES # (AUTO) 1.4 X 10^3 (1.0-4.0); LYMPHOCYTES % (AUTO) 7 % (12-44); MEAN CORPUSCULAR HEMOGLOBIN 28 PG (25-34); MEAN CORPUSCULAR HGB CONC 34 G/DL (32-36); MEAN CORPUSCULAR VOLUME 84 FL (80-99); MEAN PLATELET VOLUME 9.8 FL (7.4-10.4); MONOCYTES # (AUTO) 0.3 X 10^3 (0.0-1.0); MONOCYTES % (AUTO) 2 % (0-12); NEUTROPHILS # (AUTO) 17.5 X 10^3 (1.8-7.8); NEUTROPHILS % (AUTO) 91 % (42-75); PLATELET COUNT 289 10^3/uL (130-400); RED BLOOD COUNT 4.67 10^6/uL (4.35-5.85); RED CELL DISTRIBUTION WIDTH 12.6 % (10.0-14.5); WHITE BLOOD COUNT 19.2 10^3/uL (4.3-11.0)
[2017-09-19 11:20] LABS: ALBUMIN 4.2 GM/DL (3.2-4.5); BILIRUBIN,TOTAL 0.4 MG/DL (0.1-1.0); CALCIUM 9.9 MG/DL (8.5-10.1); CREATININE SERUM 0.99 MG/DL (0.60-1.30); POTASSIUM 4.4 MMOL/L (3.6-5.0); TOTAL PROTEIN 8.2 GM/DL (6.4-8.2)
[2017-10-12 09:07] LABS: BASOPHILS % (AUTO) 0 % (0-10); EOSINOPHILS % (AUTO) 0 % (0-10); HEMATOCRIT 38 % (35-52); HEMOGLOBIN 12.5 G/DL (11.5-16.0); LYMPHOCYTES # (AUTO) 0.6 X 10^3 (1.0-4.0); LYMPHOCYTES % (AUTO) 5 % (12-44); MEAN CORPUSCULAR HEMOGLOBIN 28 PG (25-34); MEAN CORPUSCULAR HGB CONC 33 G/DL (32-36); MEAN CORPUSCULAR VOLUME 87 FL (80-99); MEAN PLATELET VOLUME 9.9 FL (7.4-10.4); MONOCYTES # (AUTO) 0.2 X 10^3 (0.0-1.0); MONOCYTES % (AUTO) 2 % (0-12); NEUTROPHILS # (AUTO) 12.4 X 10^3 (1.8-7.8); NEUTROPHILS % (AUTO) 94 % (42-75); PLATELET COUNT 447 10^3/uL (130-400); RED CELL DISTRIBUTION WIDTH 13.9 % (10.0-14.5); WHITE BLOOD COUNT 13.2 10^3/uL (4.3-11.0)
[2017-10-12 09:38] LABS: ALANINE AMINOTRANSFERASE 50 U/L (0-55); ALBUMIN 4.3 GM/DL (3.2-4.5); ALKALINE PHOSPHATASE 100 U/L (40-136); BILIRUBIN,TOTAL 0.7 MG/DL (0.1-1.0); BUN/CREATININE RATIO 13; CALCIUM 9.9 MG/DL (8.5-10.1); CARBON DIOXIDE 23 MMOL/L (21-32); CHLORIDE 106 MMOL/L (98-107); CREATININE SERUM 0.82 MG/DL (0.60-1.30); GFR ESTIMATED > 60; GLUCOSE 270 MG/DL (70-105); POTASSIUM 4.4 MMOL/L (3.6-5.0); SODIUM 138 MMOL/L (135-145); TOTAL PROTEIN 7.8 GM/DL (6.4-8.2)
[2017-11-02 11:05] LABS: BASOPHILS % (AUTO) 0 % (0-10); EOSINOPHILS % (AUTO) 0 % (0-10); HEMATOCRIT 36 % (35-52); HEMOGLOBIN 11.7 G/DL (11.5-16.0); LYMPHOCYTES # (AUTO) 0.6 X 10^3 (1.0-4.0); LYMPHOCYTES % (AUTO) 5 % (12-44); MEAN CORPUSCULAR HEMOGLOBIN 29 PG (25-34); MEAN CORPUSCULAR HGB CONC 33 G/DL (32-36); MEAN CORPUSCULAR VOLUME 88 FL (80-99); MEAN PLATELET VOLUME 9.1 FL (7.4-10.4); MONOCYTES # (AUTO) 0.3 X 10^3 (0.0-1.0); MONOCYTES % (AUTO) 2 % (0-12); NEUTROPHILS # (AUTO) 11.2 X 10^3 (1.8-7.8); NEUTROPHILS % (AUTO) 93 % (42-75); PLATELET COUNT 458 10^3/uL (130-400); RED BLOOD COUNT 4.08 10^6/uL (4.35-5.85); RED CELL DISTRIBUTION WIDTH 14.9 % (10.0-14.5)
[2017-11-02 11:26] LABS: ALANINE AMINOTRANSFERASE 25 U/L (0-55); ALKALINE PHOSPHATASE 111 U/L (40-136); BILIRUBIN,TOTAL 0.6 MG/DL (0.1-1.0); BUN/CREATININE RATIO 17; CALCIUM 9.8 MG/DL (8.5-10.1); CARBON DIOXIDE 26 MMOL/L (21-32); CHLORIDE 104 MMOL/L (98-107); CREATININE SERUM 0.72 MG/DL (0.60-1.30); GFR ESTIMATED > 60; GLUCOSE 208 MG/DL (70-105); POTASSIUM 4.4 MMOL/L (3.6-5.0); SODIUM 138 MMOL/L (135-145); TOTAL PROTEIN 7.1 GM/DL (6.4-8.2)
[~2017-11-24] VITALS: Ht 157.5 cm; Wt 83.9 kg
[~2017-11-24 08:31] MED LIST changes: +ACET-2429 PO; +ACHD5005 PO; +CYAN25003 SL; +CYCLOPHOSPHAMIDE INJECTION 1,000 MG, CYCLOPHOSPHAMIDE INJECTION 200 MG in NS (IVPB) CAN... IV SCH; +DEXA4TAB PO; +DOCETAXEL IV SCH; +FAMO20TA5 PO; +FAMOTIDINE 20MG/2ML IV (CANCER CTR) IV SCH; +FOSAPREPITANT DIMEGLUMINE 150 MG in NS (IVPB) CANCER CENTER ONLY 150 ML IV SCH; +LORazepam 0.5 MG (ATIVAN) TABLET CANCER CTR PO ONE; +LORazepam 0.5 MG (ATIVAN) TABLET CANCER CTR PO PRN; +LORazepam 0.5 MG (ATIVAN) TABLET PO PRN; +LORazepam INJ 2 MG/ML VIAL CANCER CTR IV PRN; -METF1000 PO; +METF10002 PO; +METR500T21 PO; +NORMAL SALINE IV SCH; +NS IV 1000 ML (CANCER CTR) IV SCH; +ONDA8TAB6 PO; +PALONOSETRON 0.25 MG, DEXAMETHASONE 10 MG/NS 50 ML IVPB IV PRN; +PANT20TA2 PO; +PEGFILGRASTIM 6 MG/0.6 ML ONPRO KIT SQ SCH; +PEGFILGRASTIM 6 MG/0.6ML NEULASTA SC SCH; +PROC10TA10 PO; +diphenhydrAMINE 25 MG TAB (BENADRYL) CANCER CENTER PO ONE; +diphenhydrAMINE 25 MG TAB (BENADRYL) CANCER CENTER PO SCH; +diphenhydrAMINE 50 MG/ML INJ (CANCER CENTER) IV PRN
[2017-11-24 08:56] LABS: BASOPHILS % (AUTO) 0 % (0-10); EOSINOPHILS % (AUTO) 0 % (0-10); HEMATOCRIT 34 % (35-52); HEMOGLOBIN 10.8 G/DL (11.5-16.0); LYMPHOCYTES # (AUTO) 0.6 X 10^3 (1.0-4.0); LYMPHOCYTES % (AUTO) 5 % (12-44); MEAN CORPUSCULAR HEMOGLOBIN 28 PG (25-34); MEAN CORPUSCULAR HGB CONC 31 G/DL (32-36); MEAN CORPUSCULAR VOLUME 90 FL (80-99); MEAN PLATELET VOLUME 9.7 FL (7.4-10.4); MONOCYTES # (AUTO) 0.4 X 10^3 (0.0-1.0); MONOCYTES % (AUTO) 3 % (0-12); NEUTROPHILS # (AUTO) 10.5 X 10^3 (1.8-7.8); NEUTROPHILS % (AUTO) 91 % (42-75); PLATELET COUNT 339 10^3/uL (130-400); RED BLOOD COUNT 3.84 10^6/uL (4.35-5.85); RED CELL DISTRIBUTION WIDTH 16.5 % (10.0-14.5); WHITE BLOOD COUNT 11.5 10^3/uL (4.3-11.0)
[2017-11-24 09:08] LABS: ALANINE AMINOTRANSFERASE 27 U/L (0-55); ALBUMIN 3.9 GM/DL (3.2-4.5); ALKALINE PHOSPHATASE 103 U/L (40-136); BILIRUBIN,TOTAL 0.6 MG/DL (0.1-1.0); BUN/CREATININE RATIO 11; CALCIUM 9.5 MG/DL (8.5-10.1); CARBON DIOXIDE 26 MMOL/L (21-32); CHLORIDE 105 MMOL/L (98-107); CREATININE SERUM 0.72 MG/DL (0.60-1.30); GFR ESTIMATED > 60; GLUCOSE 153 MG/DL (70-105); POTASSIUM 4.2 MMOL/L (3.6-5.0); SODIUM 140 MMOL/L (135-145); TOTAL PROTEIN 6.6 GM/DL (6.4-8.2)
== END 2017-12-07 | disposition home or self-care (01) ==
LOC: ONC 08:31
PROVIDERS: ATTEND Internal Medicine Hematology & Oncology
DX: Z51.11 Encounter for antineoplastic chemotherapy (principal); C50.111 Malignant neoplasm of central portion of right female breast; C77.3 Secondary and unspecified malignant neoplasm of axilla and upper limb lymph nodes; E11.9 Type 2 diabetes mellitus without complications; M19.91 Primary osteoarthritis, unspecified site; E66.9 Obesity, unspecified; Z68.38 Body mass index [BMI] 38.0-38.9, adult; Z79.84 Long term (current) use of oral hypoglycemic drugs; Z79.899 Other long term (current) drug therapy; Z17.0 Estrogen receptor positive status [ER+]
CPT/HCPCS: 36591; 80053; 85025; 96367; 96372; 96375; 96413; 96417; 99214

== ENCOUNTER 2018-02-17 14:54 | Outpatient (RCR) | payer BC ==
[2017-12-15 08:53] LABS: BASOPHILS % (AUTO) 1 % (0-10); EOSINOPHILS # (AUTO) 0.1 10^3/uL (0.0-0.3); EOSINOPHILS % (AUTO) 1 % (0-10); HEMATOCRIT 36 % (35-52); HEMOGLOBIN 11.2 G/DL (11.5-16.0); LYMPHOCYTES # (AUTO) 0.9 X 10^3 (1.0-4.0); LYMPHOCYTES % (AUTO) 15 % (12-44); MEAN CORPUSCULAR HEMOGLOBIN 29 PG (25-34); MEAN CORPUSCULAR HGB CONC 32 G/DL (32-36); MEAN CORPUSCULAR VOLUME 91 FL (80-99); MEAN PLATELET VOLUME 9.2 FL (7.4-10.4); MONOCYTES # (AUTO) 0.6 X 10^3 (0.0-1.0); MONOCYTES % (AUTO) 10 % (0-12); NEUTROPHILS # (AUTO) 4.4 X 10^3 (1.8-7.8); NEUTROPHILS % (AUTO) 74 % (42-75); PLATELET COUNT 333 10^3/uL (130-400); RED BLOOD COUNT 3.89 10^6/uL (4.35-5.85); RED CELL DISTRIBUTION WIDTH 17.7 % (10.0-14.5); WHITE BLOOD COUNT 5.9 10^3/uL (4.3-11.0)
[2017-12-15 09:13] LABS: ALANINE AMINOTRANSFERASE 17 U/L (0-55); ALBUMIN 3.8 GM/DL (3.2-4.5); ALKALINE PHOSPHATASE 89 U/L (40-136); BILIRUBIN,TOTAL 0.7 MG/DL (0.1-1.0); BUN/CREATININE RATIO 7; CALCIUM 9.3 MG/DL (8.5-10.1); CARBON DIOXIDE 25 MMOL/L (21-32); CHLORIDE 107 MMOL/L (98-107); CREATININE SERUM 0.84 MG/DL (0.60-1.30); GFR ESTIMATED > 60; GLUCOSE 113 MG/DL (70-105); POTASSIUM 3.8 MMOL/L (3.6-5.0); SODIUM 142 MMOL/L (135-145); TOTAL PROTEIN 6.5 GM/DL (6.4-8.2)
[2018-02-16 09:16] LABS: BASOPHILS % (AUTO) 0 % (0-10); EOSINOPHILS # (AUTO) 0.2 10^3/uL (0.0-0.3); EOSINOPHILS % (AUTO) 4 % (0-10); HEMATOCRIT 37 % (35-52); HEMOGLOBIN 12.4 G/DL (11.5-16.0); LYMPHOCYTES # (AUTO) 0.8 X 10^3 (1.0-4.0); LYMPHOCYTES % (AUTO) 15 % (12-44); MEAN CORPUSCULAR HEMOGLOBIN 30 PG (25-34); MEAN CORPUSCULAR HGB CONC 34 G/DL (32-36); MEAN CORPUSCULAR VOLUME 87 FL (80-99); MEAN PLATELET VOLUME 9.1 FL (7.4-10.4); MONOCYTES # (AUTO) 0.3 X 10^3 (0.0-1.0); MONOCYTES % (AUTO) 6 % (0-12); NEUTROPHILS # (AUTO) 4.2 X 10^3 (1.8-7.8); NEUTROPHILS % (AUTO) 75 % (42-75); PLATELET COUNT 229 10^3/uL (130-400); RED BLOOD COUNT 4.21 10^6/uL (4.35-5.85); RED CELL DISTRIBUTION WIDTH 12.5 % (10.0-14.5); WHITE BLOOD COUNT 5.6 10^3/uL (4.3-11.0)
[2018-02-16 09:43] LABS: ALANINE AMINOTRANSFERASE 19 U/L (0-55); ALKALINE PHOSPHATASE 100 U/L (40-136); BILIRUBIN,TOTAL 0.4 MG/DL (0.1-1.0); BUN/CREATININE RATIO 23; CALCIUM 9.6 MG/DL (8.5-10.1); CARBON DIOXIDE 24 MMOL/L (21-32); CHLORIDE 107 MMOL/L (98-107); CREATININE SERUM 0.75 MG/DL (0.60-1.30); GFR ESTIMATED > 60; GLUCOSE 214 MG/DL (70-105); SODIUM 139 MMOL/L (135-145); TOTAL PROTEIN 7.1 GM/DL (6.4-8.2)
[~2018-02-17 14:54] MED LIST changes: -CYCLOPHOSPHAMIDE INJECTION 1,000 MG, CYCLOPHOSPHAMIDE INJECTION 200 MG in NS (IVPB) CAN... IV SCH; -DOCETAXEL IV SCH; -FAMOTIDINE 20MG/2ML IV (CANCER CTR) IV SCH; -FOSAPREPITANT DIMEGLUMINE 150 MG in NS (IVPB) CANCER CENTER ONLY 150 ML IV SCH; -LORazepam 0.5 MG (ATIVAN) TABLET CANCER CTR PO ONE; -LORazepam 0.5 MG (ATIVAN) TABLET CANCER CTR PO PRN; -LORazepam 0.5 MG (ATIVAN) TABLET PO PRN; -LORazepam INJ 2 MG/ML VIAL CANCER CTR IV PRN; -NORMAL SALINE IV SCH; -NS IV 1000 ML (CANCER CTR) IV SCH; -PALONOSETRON 0.25 MG, DEXAMETHASONE 10 MG/NS 50 ML IVPB IV PRN; -PEGFILGRASTIM 6 MG/0.6 ML ONPRO KIT SQ SCH; -PEGFILGRASTIM 6 MG/0.6ML NEULASTA SC SCH; -diphenhydrAMINE 25 MG TAB (BENADRYL) CANCER CENTER PO ONE; -diphenhydrAMINE 25 MG TAB (BENADRYL) CANCER CENTER PO SCH; -diphenhydrAMINE 50 MG/ML INJ (CANCER CENTER) IV PRN
== END 2018-03-15 | disposition home or self-care (01) ==
LOC: ONC 14:54
PROVIDERS: ATTEND Internal Medicine Hematology & Oncology
DX: Z51.0 Encounter for antineoplastic radiation therapy (principal); C50.111 Malignant neoplasm of central portion of right female breast; C77.3 Secondary and unspecified malignant neoplasm of axilla and upper limb lymph nodes; E11.9 Type 2 diabetes mellitus without complications; M19.91 Primary osteoarthritis, unspecified site; E66.9 Obesity, unspecified; Z68.38 Body mass index [BMI] 38.0-38.9, adult; Z79.84 Long term (current) use of oral hypoglycemic drugs; Z79.899 Other long term (current) drug therapy; Z17.0 Estrogen receptor positive status [ER+]
CPT/HCPCS: 36415; 36591; 77290; 77295; 77300; 77307; 77334; 77336; 77417; 80053; 85025; 99204; 99213

== ENCOUNTER 2018-03-28 13:16 | Outpatient (RCR) | payer BC ==
[2018-03-16 11:01] LABS: BASOPHILS % (AUTO) 0 % (0-10); EOSINOPHILS # (AUTO) 0.2 10^3/uL (0.0-0.3); EOSINOPHILS % (AUTO) 5 % (0-10); HEMATOCRIT 36 % (35-52); HEMOGLOBIN 12.2 G/DL (11.5-16.0); LYMPHOCYTES # (AUTO) 0.9 X 10^3 (1.0-4.0); LYMPHOCYTES % (AUTO) 20 % (12-44); MEAN CORPUSCULAR HEMOGLOBIN 29 PG (25-34); MEAN CORPUSCULAR HGB CONC 34 G/DL (32-36); MEAN CORPUSCULAR VOLUME 85 FL (80-99); MEAN PLATELET VOLUME 9.5 FL (7.4-10.4); MONOCYTES # (AUTO) 0.4 X 10^3 (0.0-1.0); MONOCYTES % (AUTO) 8 % (0-12); NEUTROPHILS % (AUTO) 68 % (42-75); PLATELET COUNT 210 10^3/uL (130-400); RED BLOOD COUNT 4.21 10^6/uL (4.35-5.85); RED CELL DISTRIBUTION WIDTH 12.7 % (10.0-14.5); WHITE BLOOD COUNT 4.5 10^3/uL (4.3-11.0)
[2018-03-16 11:23] LABS: ALANINE AMINOTRANSFERASE 23 U/L (0-55); ALKALINE PHOSPHATASE 106 U/L (40-136); BILIRUBIN,TOTAL 0.6 MG/DL (0.1-1.0); BUN/CREATININE RATIO 19; CALCIUM 9.6 MG/DL (8.5-10.1); CARBON DIOXIDE 26 MMOL/L (21-32); CHLORIDE 104 MMOL/L (98-107); CREATININE SERUM 0.78 MG/DL (0.60-1.30); GFR ESTIMATED > 60; GLUCOSE 147 MG/DL (70-105); SODIUM 137 MMOL/L (135-145)
[~2018-03-28 13:16] MED LIST changes: +METF-399 PO; -METF10002 PO
== END 2018-04-07 | disposition home or self-care (01) ==
LOC: ONC 13:16
PROVIDERS: ATTEND Internal Medicine Hematology & Oncology
DX: C50.111 Malignant neoplasm of central portion of right female breast (principal); C77.3 Secondary and unspecified malignant neoplasm of axilla and upper limb lymph nodes; E11.9 Type 2 diabetes mellitus without complications; M19.91 Primary osteoarthritis, unspecified site; E66.9 Obesity, unspecified; Z68.38 Body mass index [BMI] 38.0-38.9, adult; Z79.84 Long term (current) use of oral hypoglycemic drugs; Z79.899 Other long term (current) drug therapy; Z17.0 Estrogen receptor positive status [ER+]
CPT/HCPCS: 36591; 80053; 85025; 99213

== ENCOUNTER 2018-05-17 12:49 | Outpatient (RCR) | payer BC ==
[~2018-05-17 12:49] MED LIST changes: +METR-197 PO; -METR500T21 PO
[2018-05-17 13:06] LABS: BASOPHILS % (AUTO) 0 % (0-10); EOSINOPHILS # (AUTO) 0.2 10^3/uL (0.0-0.3); EOSINOPHILS % (AUTO) 3 % (0-10); HEMATOCRIT 37 % (35-52); HEMOGLOBIN 12.1 G/DL (11.5-16.0); LYMPHOCYTES # (AUTO) 1.7 X 10^3 (1.0-4.0); LYMPHOCYTES % (AUTO) 29 % (12-44); MEAN CORPUSCULAR HEMOGLOBIN 28 PG (25-34); MEAN CORPUSCULAR HGB CONC 33 G/DL (32-36); MEAN CORPUSCULAR VOLUME 85 FL (80-99); MONOCYTES # (AUTO) 0.4 X 10^3 (0.0-1.0); MONOCYTES % (AUTO) 7 % (0-12); NEUTROPHILS # (AUTO) 3.4 X 10^3 (1.8-7.8); NEUTROPHILS % (AUTO) 61 % (42-75); PLATELET COUNT 253 10^3/uL (130-400); RED BLOOD COUNT 4.29 10^6/uL (4.35-5.85); RED CELL DISTRIBUTION WIDTH 13.7 % (10.0-14.5); WHITE BLOOD COUNT 5.6 10^3/uL (4.3-11.0)
[2018-05-17 13:29] LABS: ALANINE AMINOTRANSFERASE 31 U/L (0-55); ALBUMIN 4.3 GM/DL (3.2-4.5); ALKALINE PHOSPHATASE 104 U/L (40-136); BILIRUBIN,TOTAL 0.7 MG/DL (0.1-1.0); BUN/CREATININE RATIO 18; CALCIUM 9.4 MG/DL (8.5-10.1); CARBON DIOXIDE 22 MMOL/L (21-32); CHLORIDE 105 MMOL/L (98-107); CREATININE SERUM 0.83 MG/DL (0.60-1.30); GFR ESTIMATED > 60; GLUCOSE 131 MG/DL (70-105); SODIUM 139 MMOL/L (135-145); TOTAL PROTEIN 7.5 GM/DL (6.4-8.2)
[2018-08-16 13:21] LABS: BASOPHILS % (AUTO) 0 % (0-10); EOSINOPHILS # (AUTO) 0.3 10^3/uL (0.0-0.3); EOSINOPHILS % (AUTO) 4 % (0-10); HEMATOCRIT 37 % (35-52); LYMPHOCYTES # (AUTO) 2.1 X 10^3 (1.0-4.0); LYMPHOCYTES % (AUTO) 23 % (12-44); MEAN CORPUSCULAR HEMOGLOBIN 28 PG (25-34); MEAN CORPUSCULAR HGB CONC 33 G/DL (32-36); MEAN CORPUSCULAR VOLUME 86 FL (80-99); MEAN PLATELET VOLUME 9.2 FL (7.4-10.4); MONOCYTES # (AUTO) 0.6 X 10^3 (0.0-1.0); MONOCYTES % (AUTO) 7 % (0-12); NEUTROPHILS % (AUTO) 66 % (42-75); PLATELET COUNT 297 10^3/uL (130-400); RED BLOOD COUNT 4.29 10^6/uL (4.35-5.85); RED CELL DISTRIBUTION WIDTH 13.1 % (10.0-14.5)
[2018-08-16 13:48] LABS: ALANINE AMINOTRANSFERASE 27 U/L (0-55); ALBUMIN 4.3 GM/DL (3.2-4.5); ALKALINE PHOSPHATASE 105 U/L (40-136); BILIRUBIN,TOTAL 0.5 MG/DL (0.1-1.0); BUN/CREATININE RATIO 20; CALCIUM 9.7 MG/DL (8.5-10.1); CARBON DIOXIDE 24 MMOL/L (21-32); CHLORIDE 104 MMOL/L (98-107); CREATININE SERUM 0.91 MG/DL (0.60-1.30); GFR ESTIMATED > 60; GLUCOSE 119 MG/DL (70-105); POTASSIUM 4.3 MMOL/L (3.6-5.0); SODIUM 138 MMOL/L (135-145)
== END 2018-08-15 | disposition home or self-care (01) ==
LOC: ONC 12:49
PROVIDERS: ATTEND Internal Medicine Hematology & Oncology
DX: C50.111 Malignant neoplasm of central portion of right female breast (principal); C77.3 Secondary and unspecified malignant neoplasm of axilla and upper limb lymph nodes; E11.9 Type 2 diabetes mellitus without complications; M19.91 Primary osteoarthritis, unspecified site; E66.9 Obesity, unspecified; Z68.38 Body mass index [BMI] 38.0-38.9, adult; Z79.84 Long term (current) use of oral hypoglycemic drugs; Z79.899 Other long term (current) drug therapy; Z17.0 Estrogen receptor positive status [ER+]; Z51.0 Encounter for antineoplastic radiation therapy
CPT/HCPCS: 36591; 80053; 85025

== ENCOUNTER → 2018-06-07 | Outpatient (CLI) | payer BC ==
--- NOTE | 2018-06-07 09:21 | Diagnostic Imaging Report ---
INDICATION: Left breast carcinoma, status post lumpectomy. COMPARISON: 05/24/2017. TECHNIQUE: 2D and 3D bilateral diagnostic mammography was performed with CAD. FINDINGS: Scattered fibroglandular densities are identified bilaterally. Post-therapeutic changes in the left breast are seen. There is marked skin thickening involving the left breast. No discrete mass or suspicious microcalcifications are seen. A benign-appearing nodular density in the upper-outer right breast appears stable. The axillae are unremarkable. IMPRESSION: Post-therapeutic changes in the left breast. No residual or recurrent mass is identified. ACR BI-RADS Category 2: Benign findings. Result letter will be mailed to the patient. Note: At least 10% of breast cancer is not imaged by mammography. Dictated by: Dictated on workstation # [id number]
== END ==
LOC: RAD 08:33
PROVIDERS: ATTEND Internal Medicine Hematology & Oncology
DX: C50.912 Malignant neoplasm of unspecified site of left female breast (principal); Z98.890 Other specified postprocedural states
CPT/HCPCS: 77066

== ENCOUNTER 2018-11-08 13:16 | Outpatient (RCR) | payer BC ==
[2018-08-16 13:21] LABS: BASOPHILS % (AUTO) 0 % (0-10); EOSINOPHILS # (AUTO) 0.3 10^3/uL (0.0-0.3); EOSINOPHILS % (AUTO) 4 % (0-10); HEMATOCRIT 37 % (35-52); LYMPHOCYTES # (AUTO) 2.1 X 10^3 (1.0-4.0); LYMPHOCYTES % (AUTO) 23 % (12-44); MEAN CORPUSCULAR HEMOGLOBIN 28 PG (25-34); MEAN CORPUSCULAR HGB CONC 33 G/DL (32-36); MEAN CORPUSCULAR VOLUME 86 FL (80-99); MEAN PLATELET VOLUME 9.2 FL (7.4-10.4); MONOCYTES # (AUTO) 0.6 X 10^3 (0.0-1.0); MONOCYTES % (AUTO) 7 % (0-12); NEUTROPHILS % (AUTO) 66 % (42-75); PLATELET COUNT 297 10^3/uL (130-400); RED CELL DISTRIBUTION WIDTH 13.1 % (10.0-14.5)
[2018-08-16 13:48] LABS: ALANINE AMINOTRANSFERASE 27 U/L (0-55); ALBUMIN 4.3 GM/DL (3.2-4.5); ALKALINE PHOSPHATASE 105 U/L (40-136); BILIRUBIN,TOTAL 0.5 MG/DL (0.1-1.0); BUN/CREATININE RATIO 20; CALCIUM 9.7 MG/DL (8.5-10.1); CARBON DIOXIDE 24 MMOL/L (21-32); CHLORIDE 104 MMOL/L (98-107); CREATININE SERUM 0.91 MG/DL (0.60-1.30); GFR ESTIMATED > 60; GLUCOSE 119 MG/DL (70-105); POTASSIUM 4.3 MMOL/L (3.6-5.0); SODIUM 138 MMOL/L (135-145)
[~2018-11-08 13:16] MED LIST changes: +METR-145 PO; -METR-197 PO
[2018-11-08 14:04] LABS: BASOPHILS % (AUTO) 0 % (0-10); EOSINOPHILS # (AUTO) 0.2 10^3/uL (0.0-0.3); EOSINOPHILS % (AUTO) 3 % (0-10); HEMATOCRIT 37 % (35-52); HEMOGLOBIN 12.4 G/DL (11.5-16.0); LYMPHOCYTES # (AUTO) 1.8 X 10^3 (1.0-4.0); LYMPHOCYTES % (AUTO) 26 % (12-44); MEAN CORPUSCULAR HEMOGLOBIN 29 PG (25-34); MEAN CORPUSCULAR HGB CONC 34 G/DL (32-36); MEAN CORPUSCULAR VOLUME 85 FL (80-99); MEAN PLATELET VOLUME 9.8 FL (7.4-10.4); MONOCYTES # (AUTO) 0.5 X 10^3 (0.0-1.0); MONOCYTES % (AUTO) 7 % (0-12); NEUTROPHILS # (AUTO) 4.5 X 10^3 (1.8-7.8); NEUTROPHILS % (AUTO) 64 % (42-75); PLATELET COUNT 264 10^3/uL (130-400); RED CELL DISTRIBUTION WIDTH 13.1 % (10.0-14.5)
[2018-11-08 14:23] LABS: ALANINE AMINOTRANSFERASE 42 U/L (0-55); ALBUMIN 4.1 GM/DL (3.2-4.5); ALKALINE PHOSPHATASE 133 U/L (40-136); BILIRUBIN,TOTAL 0.6 MG/DL (0.1-1.0); BUN/CREATININE RATIO 16; CALCIUM 9.5 MG/DL (8.5-10.1); CARBON DIOXIDE 24 MMOL/L (21-32); CHLORIDE 105 MMOL/L (98-107); CREATININE SERUM 0.85 MG/DL (0.60-1.30); GFR ESTIMATED > 60; GLUCOSE 160 MG/DL (70-105); POTASSIUM 4.2 MMOL/L (3.6-5.0); SODIUM 140 MMOL/L (135-145); TOTAL PROTEIN 7.6 GM/DL (6.4-8.2)
== END 2018-11-14 | disposition home or self-care (01) ==
LOC: ONC 13:16
PROVIDERS: ATTEND Internal Medicine Hematology & Oncology
DX: C50.111 Malignant neoplasm of central portion of right female breast (principal); C77.3 Secondary and unspecified malignant neoplasm of axilla and upper limb lymph nodes; E11.9 Type 2 diabetes mellitus without complications; M19.91 Primary osteoarthritis, unspecified site; E66.9 Obesity, unspecified; Z68.38 Body mass index [BMI] 38.0-38.9, adult; Z79.84 Long term (current) use of oral hypoglycemic drugs; Z79.899 Other long term (current) drug therapy; Z17.0 Estrogen receptor positive status [ER+]; Z51.0 Encounter for antineoplastic radiation therapy
CPT/HCPCS: 36591; 80053; 85025

== ENCOUNTER 2019-02-07 12:51 | Outpatient (RCR) | payer BC ==
[2019-02-07 13:05] LABS: BASOPHILS % (AUTO) 0 % (0-10); EOSINOPHILS # (AUTO) 0.2 10^3/uL (0.0-0.3); EOSINOPHILS % (AUTO) 3 % (0-10); HEMATOCRIT 40 % (35-52); LYMPHOCYTES # (AUTO) 1.6 X 10^3 (1.0-4.0); LYMPHOCYTES % (AUTO) 20 % (12-44); MEAN CORPUSCULAR HEMOGLOBIN 28 PG (25-34); MEAN CORPUSCULAR HGB CONC 32 G/DL (32-36); MEAN CORPUSCULAR VOLUME 86 FL (80-99); MEAN PLATELET VOLUME 9.8 FL (7.4-10.4); MONOCYTES # (AUTO) 0.5 X 10^3 (0.0-1.0); MONOCYTES % (AUTO) 6 % (0-12); NEUTROPHILS # (AUTO) 5.9 X 10^3 (1.8-7.8); NEUTROPHILS % (AUTO) 72 % (42-75); PLATELET COUNT 242 10^3/uL (130-400); RED CELL DISTRIBUTION WIDTH 13.2 % (10.0-14.5); WHITE BLOOD COUNT 8.2 10^3/uL (4.3-11.0)
[2019-02-07 13:29] LABS: ALBUMIN 4.3 GM/DL (3.2-4.5); BILIRUBIN,TOTAL 0.5 MG/DL (0.1-1.0); CALCIUM 9.7 MG/DL (8.5-10.1); CREATININE SERUM 0.97 MG/DL (0.60-1.30); POTASSIUM 4.2 MMOL/L (3.6-5.0); TOTAL PROTEIN 7.7 GM/DL (6.4-8.2)
== END 2019-05-08 | disposition home or self-care (01) ==
LOC: ONC 12:51
PROVIDERS: ATTEND Internal Medicine Hematology & Oncology
DX: C50.111 Malignant neoplasm of central portion of right female breast (principal); C77.3 Secondary and unspecified malignant neoplasm of axilla and upper limb lymph nodes; E11.9 Type 2 diabetes mellitus without complications; R53.83 Other fatigue; M19.91 Primary osteoarthritis, unspecified site; E66.9 Obesity, unspecified; Z68.38 Body mass index [BMI] 38.0-38.9, adult; Z79.84 Long term (current) use of oral hypoglycemic drugs; Z79.899 Other long term (current) drug therapy; Z17.0 Estrogen receptor positive status [ER+]; Z51.0 Encounter for antineoplastic radiation therapy
CPT/HCPCS: 36591; 80053; 85025

== ENCOUNTER 2019-05-09 13:46 | Outpatient (RCR) | payer BC ==
[2019-05-09 14:31] LABS: BASOPHILS % (AUTO) 0 % (0-10); EOSINOPHILS # (AUTO) 0.2 10^3/uL (0.0-0.3); EOSINOPHILS % (AUTO) 3 % (0-10); HEMATOCRIT 38 % (35-52); HEMOGLOBIN 12.3 G/DL (11.5-16.0); LYMPHOCYTES # (AUTO) 1.3 X 10^3 (1.0-4.0); LYMPHOCYTES % (AUTO) 19 % (12-44); MEAN CORPUSCULAR HEMOGLOBIN 28 PG (25-34); MEAN CORPUSCULAR HGB CONC 32 G/DL (32-36); MEAN CORPUSCULAR VOLUME 86 FL (80-99); MEAN PLATELET VOLUME 9.9 FL (7.4-10.4); MONOCYTES # (AUTO) 0.4 X 10^3 (0.0-1.0); MONOCYTES % (AUTO) 5 % (0-12); NEUTROPHILS % (AUTO) 73 % (42-75); PLATELET COUNT 238 10^3/uL (130-400); RED CELL DISTRIBUTION WIDTH 13.3 % (10.0-14.5); WHITE BLOOD COUNT 6.9 10^3/uL (4.3-11.0)
[2019-05-09 14:53] LABS: ALANINE AMINOTRANSFERASE 44 U/L (0-55); ALBUMIN 4.1 GM/DL (3.2-4.5); ALKALINE PHOSPHATASE 132 U/L (40-136); BILIRUBIN,TOTAL 0.5 MG/DL (0.1-1.0); BUN/CREATININE RATIO 18; CALCIUM 9.3 MG/DL (8.5-10.1); CARBON DIOXIDE 22 MMOL/L (21-32); CHLORIDE 106 MMOL/L (98-107); GFR ESTIMATED > 60; GLUCOSE 208 MG/DL (70-105); POTASSIUM 3.9 MMOL/L (3.6-5.0); SODIUM 140 MMOL/L (135-145); TOTAL PROTEIN 7.5 GM/DL (6.4-8.2)
== END 2019-08-07 | disposition home or self-care (01) ==
LOC: ONC 13:46
PROVIDERS: ATTEND Internal Medicine Hematology & Oncology
DX: C50.912 Malignant neoplasm of unspecified site of left female breast (principal); E11.9 Type 2 diabetes mellitus without complications; Z79.4 Long term (current) use of insulin; Z98.890 Other specified postprocedural states
CPT/HCPCS: 36591; 80053; 85025

== ENCOUNTER → 2019-05-09 | Outpatient (CLI) | payer BC ==
--- NOTE | 2019-05-09 13:57 | Diagnostic Imaging Report ---
EXAMINATION: Ultrasound left breast limited. INDICATION: Questionable left breast The diagnostic mammogram performed prior to this study noted scar formation near the biopsy site but failed to show any sign of malignancy. On this exam there is a 3.7 x 0.9 x 1.2 cm fairly well-circumscribed avascular hypoechoic area with internal echoes in the 4 o'clock position of the breast roughly 5 cm from the nipple. This is in the region of the biopsy site most likely represents a postop hematoma/seroma. There is no solid mass in this area to suggest recurrent malignancy. IMPRESSION: 1. There is no evidence for malignancy. 2. The patient should have a six-month follow-up mammogram of the left breast for continued evaluation. ACR BI-RADS Category 2: Benign findings. Dictated by: Dictated on workstation # [id number]
--- NOTE | 2019-05-10 18:56 | Diagnostic Imaging Report ---
EXAMINATION: Bilateral diagnostic mammogram. INDICATION: Carcinoma of the left breast. COMPARISON: This study was compared to the prior exams of 06/07/2018 and 05/24/2017. The patient has had a lumpectomy for carcinoma in 2017. At this time, there are no current complaints. The current study was also evaluated with a Computer Aided Detection (CAD) system. 3-D tomosynthesis was also performed and reviewed. FINDINGS: The fibroglandular tissue in both breasts is heterogeneously dense. This does limit the sensitivity of this exam. The post-biopsy changes involving the left breast including scar formation in the lumpectomy site and thickening of the skin seen on the prior exam of 06/07/2018 are again evident and essentially no different. There is no sign of recurrent malignancy involving the left breast. The right breast is stable when compared to the prior exam. There is no primary or secondary sign of malignancy. There is now a Port-A-Cath in place on the right. IMPRESSION: 1. There are postsurgical and post-treatment changes involving the left breast. There is no evidence of recurrent malignancy. Even so, it may prove worthwhile to obtain an ultrasound exam of the lumpectomy site to establish a post-biopsy baseline. 2. There is no evidence of malignancy involving the right breast. ACR BI-RADS Category 0: Incomplete. (Needs additional imaging evaluation). Result letter will be mailed to the patient. Note: At least 10% of breast cancer is not imaged by mammography. Dictated by: Dictated on workstation # [id number]
== END ==
LOC: RAD 12:43
PROVIDERS: ATTEND Internal Medicine Hematology & Oncology
DX: Z85.3 Personal history of malignant neoplasm of breast (principal)
CPT/HCPCS: 76642; 77066

== ENCOUNTER 2019-08-09 08:47 | Outpatient (RCR) | payer BC ==
[~2019-08-09 08:47] MED LIST changes: -ACET-2429 PO; +ACET650T41 PO; +EZET10TA17 PO; -EZET10TA5 PO
[2019-08-09 09:04] LABS: BASOPHILS % (AUTO) 0 % (0-10); EOSINOPHILS # (AUTO) 0.2 10^3/uL (0.0-0.3); EOSINOPHILS % (AUTO) 4 % (0-10); HEMATOCRIT 38 % (35-52); HEMOGLOBIN 11.9 G/DL (11.5-16.0); LYMPHOCYTES # (AUTO) 0.9 X 10^3 (1.0-4.0); LYMPHOCYTES % (AUTO) 14 % (12-44); MEAN CORPUSCULAR HEMOGLOBIN 28 PG (25-34); MEAN CORPUSCULAR HGB CONC 31 G/DL (32-36); MEAN CORPUSCULAR VOLUME 89 FL (80-99); MEAN PLATELET VOLUME 9.8 FL (7.4-10.4); MONOCYTES # (AUTO) 0.3 X 10^3 (0.0-1.0); MONOCYTES % (AUTO) 4 % (0-12); NEUTROPHILS # (AUTO) 4.9 X 10^3 (1.8-7.8); NEUTROPHILS % (AUTO) 78 % (42-75); PLATELET COUNT 217 10^3/uL (130-400); RED CELL DISTRIBUTION WIDTH 13.4 % (10.0-14.5); WHITE BLOOD COUNT 6.3 10^3/uL (4.3-11.0)
[2019-08-09 09:19] LABS: ALANINE AMINOTRANSFERASE 31 U/L (0-55); ALKALINE PHOSPHATASE 126 U/L (40-136); BILIRUBIN,TOTAL 0.5 MG/DL (0.1-1.0); BUN/CREATININE RATIO 14; CALCIUM 9.1 MG/DL (8.5-10.1); CARBON DIOXIDE 21 MMOL/L (21-32); CHLORIDE 107 MMOL/L (98-107); CREATININE SERUM 0.76 MG/DL (0.60-1.30); GFR ESTIMATED > 60; GLUCOSE 233 MG/DL (70-105); POTASSIUM 4.3 MMOL/L (3.6-5.0); SODIUM 139 MMOL/L (135-145); TOTAL PROTEIN 6.9 GM/DL (6.4-8.2)
== END 2019-11-07 | disposition home or self-care (01) ==
LOC: ONC 08:47
PROVIDERS: ATTEND Internal Medicine Hematology & Oncology
DX: C50.912 Malignant neoplasm of unspecified site of left female breast (principal); E11.9 Type 2 diabetes mellitus without complications; Z79.4 Long term (current) use of insulin; Z98.890 Other specified postprocedural states; Z79.899 Other long term (current) drug therapy; Z92.21 Personal history of antineoplastic chemotherapy; Z92.3 Personal history of irradiation
CPT/HCPCS: 36591; 80053; 85025

== ENCOUNTER → 2019-12-17 | Outpatient (CLI) | payer BC ==
--- NOTE | 2019-12-17 12:46 | Diagnostic Imaging Report ---
INDICATION: Left breast carcinoma status post lumpectomy. COMPARISON: Correlation is made with prior left mammogram from 05/09/2019, 06/07/2018, and 05/24/2017. TECHNIQUE: Unilateral left 2D and 3D diagnostic mammography was performed with CAD. FINDINGS: The left breast remains heterogeneously dense, limiting the sensitivity of mammography. Post lumpectomy changes of the left breast appear similar to the prior exam. The lumpectomy site does show a small fluid level, consistent with a small residual hematoma. This is similar to prior. No new mass or malignant appearing microcalcifications are seen. There are benign calcifications in the left breast. The left axilla is unremarkable. IMPRESSION: Stable post surgical changes of the left breast when compared with the exam from 05/09/2019. Continued 6 month followup is recommended to show continued stability. ACR BI-RADS Category 3: Probably benign findings. Result letter will be mailed to the patient. Note: At least 10% of breast cancer is not imaged by mammography. Dictated by: Dictated on workstation # [id number]
== END ==
LOC: RAD 12:03
PROVIDERS: ATTEND Internal Medicine Hematology & Oncology
DX: C50.912 Malignant neoplasm of unspecified site of left female breast (principal)

== ENCOUNTER → 2019-12-26 | Outpatient (CLI) | payer BC ==
[2019-12-26 10:01] LABS: BASOPHILS % (AUTO) 0 % (0-10); EOSINOPHILS # (AUTO) 0.2 10^3/uL (0.0-0.3); EOSINOPHILS % (AUTO) 3 % (0-10); HEMATOCRIT 39 % (35-52); HEMOGLOBIN 12.6 G/DL (11.5-16.0); LYMPHOCYTES # (AUTO) 1.8 X 10^3 (1.0-4.0); LYMPHOCYTES % (AUTO) 23 % (12-44); MEAN CORPUSCULAR HEMOGLOBIN 28 PG (25-34); MEAN CORPUSCULAR HGB CONC 32 G/DL (32-36); MEAN CORPUSCULAR VOLUME 86 FL (80-99); MEAN PLATELET VOLUME 9.6 FL (7.4-10.4); MONOCYTES # (AUTO) 0.4 X 10^3 (0.0-1.0); MONOCYTES % (AUTO) 6 % (0-12); NEUTROPHILS # (AUTO) 5.5 X 10^3 (1.8-7.8); NEUTROPHILS % (AUTO) 69 % (42-75); PLATELET COUNT 233 10^3/uL (130-400); RED CELL DISTRIBUTION WIDTH 13.5 % (10.0-14.5); WHITE BLOOD COUNT 8.1 10^3/uL (4.3-11.0)
[2019-12-26 10:25] LABS: ALANINE AMINOTRANSFERASE 25 U/L (0-55); ALBUMIN 4.1 GM/DL (3.2-4.5); ALKALINE PHOSPHATASE 115 U/L (40-136); BILIRUBIN,TOTAL 0.6 MG/DL (0.1-1.0); BUN/CREATININE RATIO 17; CALCIUM 9.2 MG/DL (8.5-10.1); CARBON DIOXIDE 22 MMOL/L (21-32); CHLORIDE 107 MMOL/L (98-107); CREATININE SERUM 0.82 MG/DL (0.60-1.30); GFR ESTIMATED > 60; GLUCOSE 137 MG/DL (70-105); SODIUM 140 MMOL/L (135-145); TOTAL PROTEIN 7.5 GM/DL (6.4-8.2)
== END ==
LOC: EDSTATUS 11-08 09:59 → ONC 09:38
PROVIDERS: ATTEND Internal Medicine Hematology & Oncology
DX: C50.912 Malignant neoplasm of unspecified site of left female breast (principal); E11.9 Type 2 diabetes mellitus without complications; Z79.4 Long term (current) use of insulin; Z98.890 Other specified postprocedural states; Z79.899 Other long term (current) drug therapy; Z92.21 Personal history of antineoplastic chemotherapy; Z92.3 Personal history of irradiation
CPT/HCPCS: 36591; 80053; 85025

== ENCOUNTER 2020-03-20 10:15 | Outpatient (RCR) | payer BC ==
[2020-03-20 10:44] LABS: BASOPHILS % (AUTO) 0 % (0-10); EOSINOPHILS # (AUTO) 0.3 10^3/uL (0.0-0.3); EOSINOPHILS % (AUTO) 3 % (0-10); HEMATOCRIT 40 % (35-52); HEMOGLOBIN 12.7 G/DL (11.5-16.0); LYMPHOCYTES # (AUTO) 1.7 X 10^3 (1.0-4.0); LYMPHOCYTES % (AUTO) 20 % (12-44); MEAN CORPUSCULAR HEMOGLOBIN 27 PG (25-34); MEAN CORPUSCULAR HGB CONC 32 G/DL (32-36); MEAN CORPUSCULAR VOLUME 86 FL (80-99); MEAN PLATELET VOLUME 9.8 FL (7.4-10.4); MONOCYTES # (AUTO) 0.4 X 10^3 (0.0-1.0); MONOCYTES % (AUTO) 5 % (0-12); NEUTROPHILS % (AUTO) 72 % (42-75); PLATELET COUNT 236 10^3/uL (130-400); WHITE BLOOD COUNT 8.3 10^3/uL (4.3-11.0)
[2020-03-20 11:02] LABS: ALANINE AMINOTRANSFERASE 22 U/L (0-55); ALBUMIN 4.2 GM/DL (3.2-4.5); ALKALINE PHOSPHATASE 108 U/L (40-136); BILIRUBIN,TOTAL 0.4 MG/DL (0.1-1.0); BUN/CREATININE RATIO 19; CALCIUM 9.2 MG/DL (8.5-10.1); CARBON DIOXIDE 24 MMOL/L (21-32); CHLORIDE 105 MMOL/L (98-107); CREATININE SERUM 0.85 MG/DL (0.60-1.30); GFR ESTIMATED > 60; GLUCOSE 102 MG/DL (70-105); POTASSIUM 4.4 MMOL/L (3.6-5.0); SODIUM 139 MMOL/L (135-145); TOTAL PROTEIN 7.6 GM/DL (6.4-8.2)
== END 2020-05-02 08:25 | disposition home or self-care (01) ==
LOC: ONC 10:15
PROVIDERS: ATTEND Internal Medicine Hematology & Oncology
DX: C50.919 Malignant neoplasm of unspecified site of unspecified female breast (principal); E11.9 Type 2 diabetes mellitus without complications; Z98.890 Other specified postprocedural states
CPT/HCPCS: 80053; 85025; G0463; 36591

== ENCOUNTER → 2020-06-19 | Outpatient (CLI) | payer BC ==
--- NOTE | 2020-06-19 13:53 | Diagnostic Imaging Report ---
INDICATION: Left breast carcinoma. Correlation is made with prior mammogram 12/17/2019, 05/09/2019 and 06/07/2018. 2-D and 3-D bilateral diagnostic mammography was performed with CAD. Nodular densities upper outer right breast are stable. Post lumpectomy changes left breast are stable. There are benign calcifications. No new mass or malignant appearing microcalcifications are seen. Axillae are unremarkable. IMPRESSION: BI-RADS Category 2 Stable bilateral mammograms. No mammographic features suspicious for malignancy are identified. ACR BI-RADS Category 2: Benign findings. Result letter will be mailed to the patient. Note: At least 10% of breast cancer is not imaged by mammography. Dictated by: Dictated on workstation # [id number]
== END ==
LOC: RAD 12:45
PROVIDERS: ATTEND Internal Medicine Hematology & Oncology
DX: Z09 Encounter for follow-up examination after completed treatment for conditions other than malignant neoplasm (principal); C50.312 Malignant neoplasm of lower-inner quadrant of left female breast
CPT/HCPCS: 77066; G0279; 77062

== ENCOUNTER → 2020-06-23 | Outpatient (CLI) | payer BC ==
[2020-06-23 14:04] LABS: BASOPHILS % (AUTO) 0 % (0-10); EOSINOPHILS # (AUTO) 0.3 10^3/uL (0.0-0.3); EOSINOPHILS % (AUTO) 3 % (0-10); HEMATOCRIT 40 % (35-52); HEMOGLOBIN 12.5 g/dL (11.5-16.0); LYMPHOCYTES # (AUTO) 1.9 10^3/uL (1.0-4.0); LYMPHOCYTES % (AUTO) 21 % (12-44); MEAN CORPUSCULAR HEMOGLOBIN 27 pg (25-34); MEAN CORPUSCULAR HGB CONC 32 g/dL (32-36); MEAN CORPUSCULAR VOLUME 87 fL (80-99); MEAN PLATELET VOLUME 9.7 fL (9.0-12.2); MONOCYTES # (AUTO) 0.4 10^3/uL (0.0-1.0); MONOCYTES % (AUTO) 5 % (0-12); NEUTROPHILS # (AUTO) 6.6 10^3/uL (1.8-7.8); NEUTROPHILS % (AUTO) 71 % (42-75); PLATELET COUNT 256 10^3/uL (130-400); WHITE BLOOD COUNT 9.3 10^3/uL (4.3-11.0)
[2020-06-23 14:21] LABS: ALANINE AMINOTRANSFERASE 20 U/L (0-55); ALBUMIN 4.3 GM/DL (3.2-4.5); ALKALINE PHOSPHATASE 111 U/L (40-136); BILIRUBIN,TOTAL 0.7 MG/DL (0.1-1.0); BUN/CREATININE RATIO 17; CARBON DIOXIDE 22 MMOL/L (21-32); CHLORIDE 105 MMOL/L (98-107); CREATININE SERUM 0.92 MG/DL (0.60-1.30); GFR ESTIMATED > 60; GLUCOSE 177 MG/DL (70-105); SODIUM 139 MMOL/L (135-145); TOTAL PROTEIN 7.7 GM/DL (6.4-8.2)
== END ==
LOC: ONC 13:44
PROVIDERS: ATTEND Internal Medicine Hematology & Oncology
DX: C50.912 Malignant neoplasm of unspecified site of left female breast (principal); E11.9 Type 2 diabetes mellitus without complications; I10 Essential (primary) hypertension; Z92.21 Personal history of antineoplastic chemotherapy; Z92.3 Personal history of irradiation; Z90.12 Acquired absence of left breast and nipple
CPT/HCPCS: 80053; 85025; G0463; 36591

== ENCOUNTER → 2020-09-18 | Outpatient (CLI) | payer BC | LOC: ONC 11:00 | PROVIDERS: ATTEND Internal Medicine Hematology & Oncology | DX: Z45.2 Encounter for adjustment and management of vascular access device (principal); C50.912 Malignant neoplasm of unspecified site of left female breast; E11.9 Type 2 diabetes mellitus without complications; I10 Essential (primary) hypertension; Z90.12 Acquired absence of left breast and nipple; Z98.890 Other specified postprocedural states; Z92.21 Personal history of antineoplastic chemotherapy; Z92.3 Personal history of irradiation | CPT/HCPCS: 96523 ==

== ENCOUNTER → 2020-12-08 | Outpatient (CLI) | payer BC ==
[2020-12-08 13:50] LABS: BASOPHILS % (AUTO) 0 % (0-10); EOSINOPHILS # (AUTO) 0.3 10^3/uL (0.0-0.3); EOSINOPHILS % (AUTO) 4 % (0-10); HEMATOCRIT 43 % (35-52); HEMOGLOBIN 13.4 g/dL (11.5-16.0); LYMPHOCYTES # (AUTO) 1.6 10^3/uL (1.0-4.0); LYMPHOCYTES % (AUTO) 20 % (12-44); MEAN CORPUSCULAR HEMOGLOBIN 27 pg (25-34); MEAN CORPUSCULAR HGB CONC 31 g/dL (32-36); MEAN CORPUSCULAR VOLUME 88 fL (80-99); MEAN PLATELET VOLUME 9.4 fL (9.0-12.2); MONOCYTES # (AUTO) 0.4 10^3/uL (0.0-1.0); MONOCYTES % (AUTO) 5 % (0-12); NEUTROPHILS # (AUTO) 5.7 10^3/uL (1.8-7.8); NEUTROPHILS % (AUTO) 71 % (42-75); PLATELET COUNT 264 10^3/uL (130-400)
[2020-12-08 14:17] LABS: ALBUMIN 4.3 GM/DL (3.2-4.5); BILIRUBIN,TOTAL 0.6 MG/DL (0.1-1.0); CALCIUM 9.3 MG/DL (8.5-10.1); CREATININE SERUM 1.08 MG/DL (0.60-1.30); POTASSIUM 3.9 MMOL/L (3.6-5.0)
== END ==
LOC: ONC 13:31
PROVIDERS: ATTEND Internal Medicine Hematology & Oncology
DX: Z12.39 Encounter for other screening for malignant neoplasm of breast (principal); E11.9 Type 2 diabetes mellitus without complications; I10 Essential (primary) hypertension; C50.912 Malignant neoplasm of unspecified site of left female breast
CPT/HCPCS: 80053; 85025; G0463; 36591

== ENCOUNTER 2021-03-02 08:35 | Outpatient (RCR) | payer BC | END 2021-05-31 | disposition home or self-care (01) | LOC: ONC 08:35 | PROVIDERS: ATTEND Internal Medicine Hematology & Oncology | DX: Z45.2 Encounter for adjustment and management of vascular access device (principal); C50.912 Malignant neoplasm of unspecified site of left female breast; E11.9 Type 2 diabetes mellitus without complications; I10 Essential (primary) hypertension; Z98.890 Other specified postprocedural states; Z92.3 Personal history of irradiation; Z90.12 Acquired absence of left breast and nipple | CPT/HCPCS: 96523 ==

== ENCOUNTER → 2021-06-08 | Outpatient (CLI) | payer BC ==
--- NOTE | 2021-06-08 11:49 | Diagnostic Imaging Report ---
Indication: Routine screening. Comparison is made with prior mammogram 06/19/2020 and 05/27/2019. 2-D and 3-D bilateral screening mammography was performed with CAD. The overall parenchymal pattern appears to be very similar. There are lumpectomy changes on the left which appears stable. The nodular densities on the right appears stable. There are scattered benign calcifications. No new mass or malignant-appearing microcalcifications are seen. Chest wall port hub is located in the right axilla. Left axilla is unremarkable. IMPRESSION: BI-RADS Category 2 No mammographic features suspicious for malignancy are identified. ACR BI-RADS Category 2: Benign findings. Result letter will be mailed to the patient. Note: At least 10% of breast cancer is not imaged by mammography. Dictated by: Dictated on workstation # [id number]
== END ==
LOC: RAD 09:15
PROVIDERS: ATTEND Internal Medicine Hematology & Oncology
DX: Z12.31 Encounter for screening mammogram for malignant neoplasm of breast (principal)
CPT/HCPCS: 77063; 77067

== ENCOUNTER 2021-06-09 13:03 | Outpatient (RCR) | payer BC ==
[2021-06-09 13:38] LABS: BASOPHILS % (AUTO) 0 % (0-10); EOSINOPHILS # (AUTO) 0.3 10^3/uL (0.0-0.3); EOSINOPHILS % (AUTO) 3 % (0-10); HEMATOCRIT 39 % (35-52); HEMOGLOBIN 12.1 g/dL (11.5-16.0); LYMPHOCYTES # (AUTO) 2.2 10^3/uL (1.0-4.0); LYMPHOCYTES % (AUTO) 23 % (12-44); MEAN CORPUSCULAR HEMOGLOBIN 27 pg (25-34); MEAN CORPUSCULAR HGB CONC 31 g/dL (32-36); MEAN CORPUSCULAR VOLUME 87 fL (80-99); MEAN PLATELET VOLUME 9.3 fL (9.0-12.2); MONOCYTES # (AUTO) 0.4 10^3/uL (0.0-1.0); MONOCYTES % (AUTO) 4 % (0-12); NEUTROPHILS # (AUTO) 6.8 10^3/uL (1.8-7.8); NEUTROPHILS % (AUTO) 70 % (42-75); PLATELET COUNT 290 10^3/uL (130-400); WHITE BLOOD COUNT 9.7 10^3/uL (4.3-11.0)
[2021-06-09 14:03] LABS: ALBUMIN 3.7 GM/DL (3.2-4.5); BILIRUBIN,TOTAL 0.5 MG/DL (0.1-1.0); CALCIUM 8.4 MG/DL (8.5-10.1); CREATININE SERUM 0.76 MG/DL (0.60-1.30); TOTAL PROTEIN 6.8 GM/DL (6.4-8.2)
== END 2021-08-07 | disposition home or self-care (01) ==
LOC: ONC 13:03
PROVIDERS: ATTEND Internal Medicine Hematology & Oncology
DX: Z45.2 Encounter for adjustment and management of vascular access device (principal); C50.912 Malignant neoplasm of unspecified site of left female breast; E11.9 Type 2 diabetes mellitus without complications; I10 Essential (primary) hypertension; Z98.890 Other specified postprocedural states; Z92.3 Personal history of irradiation; Z90.12 Acquired absence of left breast and nipple
CPT/HCPCS: 80053; 85025; G0463; 36591

== ENCOUNTER 2021-09-01 10:53 | Outpatient (RCR) | payer BC | END 2021-09-07 | disposition home or self-care (01) | LOC: ONC 10:53 | PROVIDERS: ATTEND Internal Medicine Hematology & Oncology | DX: Z45.2 Encounter for adjustment and management of vascular access device (principal) | CPT/HCPCS: 96523 ==

== ENCOUNTER 2021-11-26 08:39 | Outpatient (RCR) | payer BC ==
[2021-11-26 09:04] LABS: BASOPHILS % (AUTO) 1 % (0-10); EOSINOPHILS # (AUTO) 0.2 10^3/uL (0.0-0.3); EOSINOPHILS % (AUTO) 4 % (0-10); HEMATOCRIT 38 % (35-52); HEMOGLOBIN 11.9 g/dL (11.5-16.0); LYMPHOCYTES # (AUTO) 1.7 10^3/uL (1.0-4.0); LYMPHOCYTES % (AUTO) 25 % (12-44); MEAN CORPUSCULAR HEMOGLOBIN 27 pg (25-34); MEAN CORPUSCULAR HGB CONC 32 g/dL (32-36); MEAN CORPUSCULAR VOLUME 87 fL (80-99); MEAN PLATELET VOLUME 9.6 fL (9.0-12.2); MONOCYTES # (AUTO) 0.5 10^3/uL (0.0-1.0); MONOCYTES % (AUTO) 7 % (0-12); NEUTROPHILS # (AUTO) 4.4 10^3/uL (1.8-7.8); NEUTROPHILS % (AUTO) 64 % (42-75); PLATELET COUNT 235 10^3/uL (130-400); WHITE BLOOD COUNT 6.9 10^3/uL (4.3-11.0)
[2021-11-26 09:26] LABS: ALBUMIN 3.9 GM/DL (3.2-4.5); BILIRUBIN,TOTAL 0.7 MG/DL (0.1-1.0); CALCIUM 8.9 MG/DL (8.5-10.1); CREATININE SERUM 0.96 MG/DL (0.60-1.30); POTASSIUM 4.5 MMOL/L (3.6-5.0)
== END 2021-12-05 | disposition home or self-care (01) ==
LOC: ONC 08:39
PROVIDERS: ATTEND Internal Medicine Hematology & Oncology
DX: Z45.2 Encounter for adjustment and management of vascular access device (principal); C50.912 Malignant neoplasm of unspecified site of left female breast; E11.9 Type 2 diabetes mellitus without complications; Z92.21 Personal history of antineoplastic chemotherapy; Z92.3 Personal history of irradiation; Z98.890 Other specified postprocedural states
CPT/HCPCS: 80053; 85025; G0463; 36591; 99213

== ENCOUNTER 2022-06-28 12:38 | Outpatient (RCR) | payer BC ==
[2022-06-28 13:38] LABS: BASOPHILS % (AUTO) 0 % (0-10); EOSINOPHILS # (AUTO) 0.3 10^3/uL (0.0-0.3); EOSINOPHILS % (AUTO) 3 % (0-10); HEMATOCRIT 37 % (35-52); HEMOGLOBIN 11.6 g/dL (11.5-16.0); LYMPHOCYTES # (AUTO) 1.9 10^3/uL (1.0-4.0); LYMPHOCYTES % (AUTO) 21 % (12-44); MEAN CORPUSCULAR HEMOGLOBIN 27 pg (25-34); MEAN CORPUSCULAR HGB CONC 31 g/dL (32-36); MEAN CORPUSCULAR VOLUME 85 fL (80-99); MEAN PLATELET VOLUME 10.1 fL (9.0-12.2); MONOCYTES # (AUTO) 0.6 10^3/uL (0.0-1.0); MONOCYTES % (AUTO) 6 % (0-12); NEUTROPHILS # (AUTO) 6.4 10^3/uL (1.8-7.8); NEUTROPHILS % (AUTO) 69 % (42-75); PLATELET COUNT 254 10^3/uL (130-400); WHITE BLOOD COUNT 9.2 10^3/uL (4.3-11.0)
[2022-06-28 13:59] LABS: ALBUMIN 3.9 GM/DL (3.2-4.5); BILIRUBIN,TOTAL 0.4 MG/DL (0.1-1.0); CALCIUM 8.7 MG/DL (8.5-10.1); CREATININE SERUM 1.2 MG/DL (0.60-1.30); POTASSIUM 4.2 MMOL/L (3.6-5.0)
== END 2022-07-07 | disposition home or self-care (01) ==
LOC: ONC 12:38
PROVIDERS: ATTEND Internal Medicine Hematology & Oncology
DX: Z45.2 Encounter for adjustment and management of vascular access device (principal); C50.912 Malignant neoplasm of unspecified site of left female breast; E11.9 Type 2 diabetes mellitus without complications; I10 Essential (primary) hypertension; E66.9 Obesity, unspecified; Z92.21 Personal history of antineoplastic chemotherapy; Z92.3 Personal history of irradiation; Z98.890 Other specified postprocedural states; Z90.12 Acquired absence of left breast and nipple
CPT/HCPCS: 80053; 85025; G0463; 36591; 99213

== ENCOUNTER → 2022-06-28 | Outpatient (CLI) | payer BC ==
[~2022-06-28] MED LIST changes: +ACET-2717 PO; -ACET650T41 PO
--- NOTE | 2022-06-28 11:14 | Diagnostic Imaging Report ---
INDICATION: Routine screening. Comparison is made with prior mammogram from 06/08/2021 and 06/19/2020. 2-D and 3-D bilateral screening mammography was performed with CAD. Both breasts are heterogeneously dense, limiting the sensitivity of mammography. The lumpectomy changes in the left breast are again noted. There are scattered benign calcifications. No new mass or malignant-appearing microcalcifications are seen. Axillae are unremarkable. IMPRESSION: No mammographic features suspicious for malignancy are identified. ACR BI-RADS Category 2: Benign findings. Result letter will be mailed to the patient. Note: At least 10% of breast cancer is not imaged by mammography. BI-RADS Category 2 Dictated by: Dictated on workstation # [id number]
== END ==
LOC: RAD 09:58
PROVIDERS: ATTEND Internal Medicine Hematology & Oncology
DX: Z12.31 Encounter for screening mammogram for malignant neoplasm of breast (principal)
CPT/HCPCS: 77063; 77067

== ENCOUNTER 2022-09-24 10:00 | Outpatient (RCR) | payer MEDICARE, OTHER | END 2022-10-05 | disposition home or self-care (01) | LOC: ONC 10:00 | PROVIDERS: ATTEND Internal Medicine Hematology & Oncology | DX: C50.912 Malignant neoplasm of unspecified site of left female breast (principal); E11.9 Type 2 diabetes mellitus without complications; I10 Essential (primary) hypertension; E66.9 Obesity, unspecified; Z92.21 Personal history of antineoplastic chemotherapy; Z92.3 Personal history of irradiation; Z98.890 Other specified postprocedural states; Z90.12 Acquired absence of left breast and nipple ==

== ENCOUNTER 2022-12-06 10:07 | Outpatient (RCR) | payer MEDICARE, OTHER ==
[2022-12-06 10:26] LABS: BASOPHILS % (AUTO) 0 % (0-10); EOSINOPHILS # (AUTO) 0.2 10^3/uL (0.0-0.3); EOSINOPHILS % (AUTO) 3 % (0-10); HEMATOCRIT 38 % (35-52); HEMOGLOBIN 11.9 g/dL (11.5-16.0); LYMPHOCYTES # (AUTO) 1.5 10^3/uL (1.0-4.0); LYMPHOCYTES % (AUTO) 20 % (12-44); MEAN CORPUSCULAR HEMOGLOBIN 28 pg (25-34); MEAN CORPUSCULAR HGB CONC 32 g/dL (32-36); MEAN CORPUSCULAR VOLUME 87 fL (80-99); MEAN PLATELET VOLUME 9.5 fL (9.0-12.2); MONOCYTES # (AUTO) 0.5 10^3/uL (0.0-1.0); MONOCYTES % (AUTO) 6 % (0-12); NEUTROPHILS # (AUTO) 5.3 10^3/uL (1.8-7.8); NEUTROPHILS % (AUTO) 70 % (42-75); PLATELET COUNT 235 10^3/uL (130-400); WHITE BLOOD COUNT 7.5 10^3/uL (4.3-11.0)
[2022-12-06 10:53] LABS: ALBUMIN 4.1 GM/DL (3.2-4.5); BILIRUBIN,TOTAL 0.6 MG/DL (0.1-1.0); CALCIUM 8.8 MG/DL (8.5-10.1); CREATININE SERUM 0.87 MG/DL (0.60-1.30); POTASSIUM 4.6 MMOL/L (3.6-5.0); TOTAL PROTEIN 7.4 GM/DL (6.4-8.2)
== END 2023-01-05 | disposition home or self-care (01) ==
LOC: ONC 10:07
PROVIDERS: ATTEND Internal Medicine Hematology & Oncology
DX: Z45.2 Encounter for adjustment and management of vascular access device (principal); C50.912 Malignant neoplasm of unspecified site of left female breast; E11.9 Type 2 diabetes mellitus without complications; I10 Essential (primary) hypertension; E66.9 Obesity, unspecified; Z92.21 Personal history of antineoplastic chemotherapy; Z92.3 Personal history of irradiation; Z98.890 Other specified postprocedural states; Z90.12 Acquired absence of left breast and nipple
CPT/HCPCS: 36415; 36591; 80053; 85025

== ENCOUNTER 2023-01-27 10:32 | Outpatient (RCR) | payer MEDICARE, OTHER | END 2023-02-04 | disposition home or self-care (01) | LOC: ONC 10:32 | PROVIDERS: ATTEND Internal Medicine Hematology & Oncology | DX: C50.912 Malignant neoplasm of unspecified site of left female breast (principal); E11.9 Type 2 diabetes mellitus without complications; I10 Essential (primary) hypertension; E66.9 Obesity, unspecified; Z92.21 Personal history of antineoplastic chemotherapy; Z92.3 Personal history of irradiation; Z98.890 Other specified postprocedural states; Z90.12 Acquired absence of left breast and nipple ==

== ENCOUNTER → 2023-01-27 | Outpatient (CLI) | payer MEDICARE, OTHER ==
--- NOTE | 2023-01-27 11:40 | Diagnostic Imaging Report ---
PROCEDURE: US PELVIC (NON-OB). TECHNIQUE: Multiple real-time grayscale images were obtained over the pelvis in various projections transabdominally. INDICATION: Breast carcinoma, using long-term aromatase inhibitor. FINDINGS: Uterus is anteverted measuring 4.3 x 2.0 x 2.8 cm. The endometrium could not be visualized. No myometrial mass identified. Overall study is significantly compromised due to overlying bowel gas and patient body habitus. The ovaries could not be visualized due to overlying bowel gas. No adnexal mass or free fluid is detected. IMPRESSION: 1. Nonvisualized ovaries due to patient body habitus and overlying bowel gas. 2. Non-visualized endometrium. Dictated by: Dictated on workstation # [id number]
== END ==
LOC: RAD 09:26
PROVIDERS: ATTEND Obstetrics & Gynecology
DX: C50.919 Malignant neoplasm of unspecified site of unspecified female breast (principal); Z79.811 Long term (current) use of aromatase inhibitors
CPT/HCPCS: 76856

== ENCOUNTER 2023-02-10 10:47 | Outpatient (RCR) | payer MEDICARE, OTHER | END 2023-03-07 | disposition home or self-care (01) | LOC: ONC 10:47 | PROVIDERS: ATTEND Internal Medicine Hematology & Oncology | DX: C50.912 Malignant neoplasm of unspecified site of left female breast (principal); E11.9 Type 2 diabetes mellitus without complications; I10 Essential (primary) hypertension; E66.9 Obesity, unspecified; Z92.21 Personal history of antineoplastic chemotherapy; Z92.3 Personal history of irradiation; Z98.890 Other specified postprocedural states; Z90.12 Acquired absence of left breast and nipple ==

== ENCOUNTER → 2023-02-15 | Outpatient (CLI) | payer MEDICARE, OTHER ==
--- NOTE | 2023-02-15 17:16 | Diagnostic Imaging Report ---
INDICATION: Screening bone density scan COMPARISON: None available FINDINGS: AP Spine L1-L4: [BMD (g/cm2): 0.974] [T-Score: -1.9] [Z-Score: -1.2] [BMD Previous: na] [BMD % Change: na] LT Hip Neck: [BMD (g/cm2): 0.863] [T-Score: -1.3] [Z-Score: -0.3] LT Hip Total: [BMD (g/cm2):0.953] [T-Score:-0.4] [Z-Score: 0.2] [BMD Previous: na] [BMD % Change: na] RT Hip Neck: [BMD (g/cm2):0.805] [T-Score:-1.7] [Z-Score:-0.8] RT Hip Total: [BMD (g/cm2):0.887] [T-score:-1.0] [Z-Score:-0.4] [BMD Previous:na] [BMD % Change:na] *Indicates significant change from prior examination based on 95% confidence level. World Health Organization criteria for BMD interpretation classify patients as Normal (T-score at or above -1.0), Osteopenic (T-score between -1.0 and -2.5) or Osteoporotic (T-score at or below -2.5). LIMITATIONS AND MODIFICATION: None. FRACTURE RISK (FRAX SCORE): The ten year probability of (%): Major Osteoporotic Fracture: [11.4] Hip Fracture: [1.5] IMPRESSION: 1. Osteopenia (Low bone mass). 2. Baseline examination. 3. See below National Osteoporosis Foundation guidelines on when to potentially initiate pharmacologic therapy. Based on the National Osteoporosis Foundation Guidelines, pharmacologic treatment should be initiated in any of the following, unless clinical conditions suggest otherwise: * Any patient with prior fragility fracture of the hip or vertebrae. A spine fracture indicates 5X risk for subsequent spine fracture and 2X risk for subsequent hip fracture. * Osteoporosis (T-score <-2.5). * Postmenopausal women and men age 50 and older with low bone mass/osteopenia (T-score between -1.0 and -2.5) by DXA and 10-year major osteoporotic fracture greater than 20% or a 10-year probability of hip fracture greater than 3%. These fracture risks are supplied above in the FRAX score, if applicable. * Clinician judgement and/or patient preferences may indicate treatment for people with 10-year fracture probabilities above or below these levels. Dictated by: Dictated on workstation # [id number]
== END ==
LOC: RAD 10:00
PROVIDERS: ATTEND Obstetrics & Gynecology
DX: M81.0 Age-related osteoporosis without current pathological fracture (principal); M85.80 Other specified disorders of bone density and structure, unspecified site
CPT/HCPCS: 77080

== ENCOUNTER 2023-03-14 10:41 | Outpatient (RCR) | payer MEDICARE, OTHER | END 2023-04-07 | disposition home or self-care (01) | LOC: ONC 10:41 | PROVIDERS: ATTEND Internal Medicine Hematology & Oncology | DX: Z45.2 Encounter for adjustment and management of vascular access device (principal); C50.912 Malignant neoplasm of unspecified site of left female breast; K21.9 Gastro-esophageal reflux disease without esophagitis; E11.9 Type 2 diabetes mellitus without complications; I10 Essential (primary) hypertension; E66.9 Obesity, unspecified; Z92.21 Personal history of antineoplastic chemotherapy; Z92.3 Personal history of irradiation; Z98.890 Other specified postprocedural states; Z90.12 Acquired absence of left breast and nipple | CPT/HCPCS: 96523 ==

== ENCOUNTER 2023-04-13 05:36 | Outpatient (CLI) | payer MEDICARE, OTHER ==
[~2023-04-13] VITALS: Ht 160 cm; Wt 92.1 kg
[2023-04-13] MEDS ORDERED: LACT1CAP39 PO (14:33)
[2023-04-13] MEDS ORDERED: LYSI500T37 PO (14:33)
[2023-04-13] MEDS ORDERED: DICL75TA2 PO (14:38)
[2023-04-13] MEDS ORDERED: MELO15TA39 PO (14:38)
[2023-04-13] MEDS ORDERED: METF-399 PO (14:38)
[2023-04-13] MEDS ORDERED: SIMV40TA25 PO (14:38)
[2023-04-13] MEDS ORDERED: ASPI-999 PO (14:38)
[2023-04-13] MEDS ORDERED: LISI10TA25 PO (14:38)
== END 2023-04-13 15:08 | disposition home or self-care (01) ==
LOC: PREOP 05:36
PROVIDERS: ATTEND Surgery
DX: Z01.818 Encounter for other preprocedural examination (principal)

== ENCOUNTER 2023-04-25 07:07 | Day surgery (SDC) | payer MEDICARE, OTHER ==
[~2023-04-25] VITALS: Ht 160 cm; Wt 92.1 kg
[~2023-04-25 07:07] MED LIST changes: +ASPI-999 PO; +DICL75TA2 PO; +LACT1CAP39 PO; +LISI10TA25 PO; +LYSI500T37 PO; -PROC10TA10 PO; +PROC10TA15 PO; +SIMV40TA25 PO
[2023-04-25] MEDS ORDERED: LACTATED RINGERS 1,000 ML 1,000 ML IV STA (07:16)
[2023-04-25] MEDS ORDERED: HURRICAINE EXT TUBE (BENZOCAINE) XX PRN (07:30)
[2023-04-25 07:44] VITALS: BP 151/87
[2023-04-25] MEDS ORDERED: MIDAZOLAM INJ 2 MG/2 ML VIAL ONE (08:14)
[2023-04-25 09:20] VITALS: BP 98/50
[2023-04-25 09:25] VITALS: BP 98/50
--- NOTE | 2023-04-25 09:26 | Progress Note-Post Operative ---
Post-Operative Progess Note Surgeon (s)/[employer] Safety Engineer (s) Surgeon EMMANUEL JENSEN DO [employer] Safety Engineer: Jordan Escalona, MSIII Pre-Operative Diagnosis Chronic Gastritis, Screening Colon Post-Operative Diagnosis Gastritis Hiatal hernia Diverticula int hemorrhoids poor prep Procedure & Operative Findings Date of Procedure 04/25/23 Procedure Performed/Findings EGD with biopsy Colonoscopy PROCEDURE NOTE: After informed consent was obtained, the patient was brought to the endoscopy suite, placed in bed in left lateral decubitus position. She was administered IV sedation by the CVICU NURSE who then monitored vitals the entire time, heart rate, blood pressure and pulse ox and the scope was inserted down the mouth through the esophagus into the stomach. On the way down, noted some mild esophagitis, took a picture, pushed into the stomach, pushed past the antrum into the duodenum. Duodenum looked good. Pulled back, noted some gastritis and did a biopsy of the antrum. Then retroflexed the scope, saw a small 0.5cm Grade II AFS hiatal hernia, took a picture of this and then pulled the scope into the GE junction. I took another picture of the hiatal hernia and then did a biopsy of the GE junction. Pushed the scope back into the stomach, suctioned all the air out of the stomach. At this point pulled the scope up the esophagus and out the mouth. Switched camera, switched gloves, went down below and started the colonoscopy. Pushed all the way to about 130 cm and pushed into the cecum. On the way I had noted diverticula and took a picture. Once in the cecum I took a picture of appendiceal orifice and noted the ileocecal valve. Then slowly withdrew the scope insufflating to look circumferentially at the phipps starting in the cecum, up the ascending colon to the hepatic flexure, then down the transverse colon to the splenic flexure, into the descending colon and down into the sigmoid. Finally, into the rectal vault and retroflexed the scope. Took a picture of the internal hemorrhoids. Unfortunately, throughout the colon she had retained liquid fecal material. I was unable to wash all of it out and it obscured the scope occasionally. I don't think I missed a large polyp, but could have missed a small flat polyp. The patient tolerated the procedure and she recovered in the endoscopy suite. Recommended for repeat colonoscopy in 5 years because of the poor prep. Anesthesia Type IV sedation by CVICU NURSE Estimated Blood Loss Estimated blood loss (mL): scant Specimens/Packing Specimens Removed antral bx body of stomach bx GE jxn bx MEMANUEL JENSEN DO Apr 25, 2023 09:26
--- NOTE | 2023-04-25 09:27 | Endoscopy Discharge Instruct ---
Endo Procedure/Findings Findings 1.: Gastritis 2.: Hiatal Hernia 3.: Diverticulosis 4.: Internal Hemorrhoids, Other Findings (poor prep) Discharge Instructions - Activity: You might feel a little sleepy until tomorrow. This is due to the medicine you received to relax you. Until tomorrow, you should: NOT drive a car, operate machinery or power tools. NOT drink any alcoholic beverages. NOT make any important decisions or sign importortant papers. Do not return to work until tomorrow, unless otherwise instructed. Resume previous activities tomorrow. Diet: Start by taking liquids. If you tolerate liquids, advance to solid food. 1.: EGD in 3 years 2.: Colonscopy in 5 years Notify Physician - If you experience excessive bleeding, unusual abdominal pain, fever, or chest pain, contact your doctor immediately. Follow-Up: Other Follow up in my office in one week EMMANUEL JENSEN DO Apr 25, 2023 09:27
[2023-04-25 09:55] VITALS: BP 132/85
[2023-04-25 10:30] VITALS: BP 132/85
--- NOTE | 2023-04-25 12:12 | Anesthesia-General Post-Op ---
MAC Patient Condition Mental Status/LOC: Same as Preop Cardiovascular: Satisfactory Nausea/Vomiting: Absent Respiratory: Satisfactory Pain: Controlled Complications: Absent Post Op Complications Complications None Follow Up Care/Instructions Patient Instructions None needed. Anesthesiology Discharge Order Discharge Order Patient is doing well, no complaints, stable vital signs, no apparent adverse anesthesia problems. No complications reported per nursing. DAVID SCHOFIELD CRNA Apr 25, 2023 12:12
== END 2023-04-25 10:30 | disposition home or self-care (01) ==
LOC: ENDO 07:07
PROVIDERS: ATTEND Surgery
DX: Z12.11 Encounter for screening for malignant neoplasm of colon (principal); K29.50 Unspecified chronic gastritis without bleeding; K21.00 Gastro-esophageal reflux disease with esophagitis, without bleeding; K44.9 Diaphragmatic hernia without obstruction or gangrene; K57.30 Diverticulosis of large intestine without perforation or abscess without bleeding; K64.8 Other hemorrhoids; K31.89 Other diseases of stomach and duodenum; E66.01 Morbid (severe) obesity due to excess calories; Z68.36 Body mass index [BMI] 36.0-36.9, adult
CPT/HCPCS: 43239; G0121

== ENCOUNTER → 2023-06-09 | Outpatient (CLI) | payer MEDICARE, OTHER ==
[~2023-06-09] MED LIST changes: -EZET10TA17 PO; +EZET10TA83 PO
--- NOTE | 2023-06-09 15:11 | Diagnostic Imaging Report ---
Indication: Routine screening. Comparison is made with prior mammograms 06/28/2022 and 06/08/2021. 2-D and 3-D bilateral screening mammography was performed with CAD. Both breasts are heterogeneously dense, limiting the sensitivity of mammography. Postlumpectomy changes in the left breast appear stable. Nodular densities in the right breast appear benign. No new mass or malignant-appearing microcalcifications are identified. There are benign calcifications. Axillae are unremarkable apart from an [id number] hub in the right axilla. Impression: BI-RADS Category 2 No mammographic features suspicious for malignancy are identified. ACR BI-RADS Category 2: Benign findings. Result letter will be mailed to the patient. Note: At least 10% of breast cancer is not imaged by mammography. Dictated by: Dictated on workstation # [id number]
--- NOTE | 2023-06-09 15:25 | Diagnostic Imaging Report ---
History of left breast cancer. TECHNIQUE: The patient received 27 mCi Tc 99 MDP and after 3 hours, whole-body planar imaging performed. COMPARISON: I have no priors FINDINGS: There is a mild degenerative pattern of uptake about the knees, ankles and shoulders, as well as wrists and elbows. The spine appeared unremarkable aside from likely facet uptake eccentric to the right at the mid to upper cervical levels. Sternomanubrium and ribs showed no suspicious finding. There there is physiologic soft tissue uptake and excretion by urinary tracts. A focal area of uptake in the right anterior proximal tibial metaphysis is of uncertain etiology but would be a very atypical solitary metastatic focus, consider right knee radiographs to see if there is chronic hypertrophy such as remote Darwin Schlatter's accounting for this likely benign finding. IMPRESSION: No features felt suggestive of metastatic disease to bone. Degenerative changes and likely chronic hypertrophic changes accounting for uptake in the right tibial metaphysis but knee radiographs suggested. Dictated by: Dictated on workstation # [id number]
== END ==
LOC: RAD 10:08
PROVIDERS: ATTEND Internal Medicine Hematology & Oncology
DX: Z12.31 Encounter for screening mammogram for malignant neoplasm of breast (principal); Z85.3 Personal history of malignant neoplasm of breast
CPT/HCPCS: 77063; 77067; 78306; A9503

== ENCOUNTER 2023-06-21 08:00 | Outpatient (RCR) | payer MEDICARE, OTHER ==
[2023-06-13 10:06] LABS: BASOPHILS % (AUTO) 0 % (0-10); EOSINOPHILS # (AUTO) 0.1 10^3/uL (0.0-0.3); EOSINOPHILS % (AUTO) 2 % (0-10); HEMATOCRIT 34 % (35-52); HEMOGLOBIN 10.4 g/dL (11.5-16.0); LYMPHOCYTES # (AUTO) 1.2 10^3/uL (1.0-4.0); LYMPHOCYTES % (AUTO) 19 % (12-44); MEAN CORPUSCULAR HEMOGLOBIN 28 pg (25-34); MEAN CORPUSCULAR HGB CONC 31 g/dL (32-36); MEAN CORPUSCULAR VOLUME 90 fL (80-99); MEAN PLATELET VOLUME 10.3 fL (9.0-12.2); MONOCYTES # (AUTO) 0.4 10^3/uL (0.0-1.0); MONOCYTES % (AUTO) 6 % (0-12); NEUTROPHILS # (AUTO) 4.5 10^3/uL (1.8-7.8); NEUTROPHILS % (AUTO) 72 % (42-75); PLATELET COUNT 181 10^3/uL (130-400); WHITE BLOOD COUNT 6.3 10^3/uL (4.3-11.0)
[2023-06-13 10:25] LABS: ALBUMIN 3.9 GM/DL (3.2-4.5); BILIRUBIN,TOTAL 0.6 MG/DL (0.1-1.0); CALCIUM 8.7 MG/DL (8.5-10.1); CREATININE SERUM 1.16 MG/DL (0.60-1.30); POTASSIUM 4.4 MMOL/L (3.6-5.0); TOTAL PROTEIN 6.9 GM/DL (6.4-8.2)
== END 2023-07-07 | disposition home or self-care (01) ==
LOC: ONC 08:00
PROVIDERS: ATTEND Internal Medicine Hematology & Oncology
DX: Z45.2 Encounter for adjustment and management of vascular access device (principal); C50.912 Malignant neoplasm of unspecified site of left female breast; E11.9 Type 2 diabetes mellitus without complications; I10 Essential (primary) hypertension; E66.9 Obesity, unspecified; Z92.21 Personal history of antineoplastic chemotherapy; Z92.3 Personal history of irradiation; Z98.890 Other specified postprocedural states; Z90.12 Acquired absence of left breast and nipple
CPT/HCPCS: 80053; 82728; 83540; 83550; 85025; G0463; 36415; 36591; 82274; 99214